=== PATIENT | male | born 1965 | race Caucasian/White ===

== ENCOUNTER → 2017-12-19 10:13 | Outpatient (CLI) | payer BC, SELFPAY ==
[2017-12-19 12:12] LABS: Absolute Lymphocyte Count 1.81 X10^3/ul (0.83-4.51); Absolute Neutrophil Count 1.4 X10^3/uL (2.0-7.7); Basophil# 0.02 X10^3/uL; Basophil% 0.5 % (0-1); Eosinophil# 0.19 X10^3/uL; Hematocrit 44.3 % (40-54); Hemoglobin 15.2 g/dl (13.0-16.5); Lymphocyte # 1.81 X10^3/ul (4.0); Lymphocyte % 47.8 % (19-41); Mean Corp Hgb Conc 34.3 g/gl (32-36); Mean Corpuscular Hgb 32.1 pg (27.0-32.0); Mean Corpuscular Volume 93.7 fL (80-94); Mean Platelet Vol. 9.4 fl (6.2-12.0); Monocyte# 0.32 X10^3/uL; Monocyte% 8.4 % (0-10); Neutrophil # 1.44 X10^3/uL (2.7-7.7); Platelet Count 187 K/mm3 (150-450); RBC Distribution Width CV 12.4 % (11.6-14.6); RBC Distribution Width SD 42.1 fl (35.1-43.9); Red Blood Count 4.73 M/mm3 (4.6-6.2); White Blood Count 3.8 K/mm3 (4.4-11.0)
[2017-12-19 12:20] LABS: POSITIVE COUNT NO; POSITIVE DIFFERENTIAL NO; POSITIVE MORPHOLOGY NO
[2017-12-19 12:30] LABS: Color, Urine Yellow (Yellow); Glucose, Dipstick Normal (Normal); Ketone-Dipstick Negative (Negative); Leukocyte Esterase-Dipstick Negative /ul (Negative); Nitrite-Dipstick Negative (Negative); Occult Blood-Urine Negative /ul (Negative); Protein-Dipstick Negative (Negative); Urine Bilirubin Dipstick Negative (Negative); Urine Clarity Clear (Clear); Urine Urobilinogen Normal (Normal)
[2017-12-19 12:34] LABS: ALB/GLOB Ratio 1.1 RATIO (0.9-2.4); AST(SGOT) 36 U/L (15-37); Alanine Aminotransfer ALT/SGPT 50 U/L (16-61); Albumin, Serum 3.6 g/dL (3.2-5.0); Alkaline Phosphatase 57 U/L (45-117); Anion Gap 6 (5-15); BUN 12 mg/dL (7-18); BUN/Creat Ratio 16.4 RATIO (10-20); Calcium,Total 8.4 mg/dL (8.5-10.1); Chloride 106 mmol/L (98-107); Cholesterol 134 mg/dL (200); Creatinine, Serum 0.73 mg/dL (0.70-1.30); EST Glomerular Filtration Rate 120 mL/min (>60); Est Glom Filt Rate - Afr Amer 145 mL/min (>60); Globulin 3.4 g/dL (2.2-4.2); Glucose 140 mg/dL (74-106); High Density Lipoprotein 50 mg/dL; Sodium Level 140 mmol/L (136-145); Triglycerides 76 mg/dL; Very Low Density Lipoprotein 15 mg/dL (5-40)
[2017-12-19 14:00] LABS: Chlamydia Trachomatis by PCR Negative (Negative); Neisserai gonorrhoeae by PCR Negative (Negative); Probe Check PASS; Sample Adequacy Control PASS; Specimen Processing Control PASS
[2017-12-20 14:07] LABS: Absolute CD4 Helper 665 /uL (359-1519); Basophils (Absolute) 0 x10E3/uL (0.0-0.2); Eosinophils 4 % (Not Estab.); Eosinophils (Absolute) 0.2 x10E3/uL (0.0-0.4); Hematocrit 44.4 % (37.5-51.0); Hemoglobin 15.3 g/dL (13.0-17.7); Immature Granulocytes 0 % (Not Estab.); Lymphs 47 % (Not Estab.); Lymphs (Absolute) 1.9 x10E3/uL (0.7-3.1); MCH 32.1 pg (26.6-33.0); MCHC 34.5 g/dL (31.5-35.7); MCV 93 fL (79-97); Monocytes 7 % (Not Estab.); Monocytes (Absolute) 0.3 x10E3/uL (0.1-0.9); Neutrophils 41 % (Not Estab.); Neutrophils (Absolute) 1.6 x10E3/uL (1.4-7.0); Platelets 204 x10E3/uL (150-379); RBC Count 4.77 x10E6/uL (4.14-5.80); RDW 12.8 % (12.3-15.4)
[2017-12-21 01:13] LABS: Rapid Plasmin Reagin (RPR) NONREACTIVE (NONREACTIVE)
[2017-12-21 11:52] LABS: HIV-1 RNA by PCR, Quant. < 20 copies/mL (.)
[2017-12-21 12:05] LABS: Immature Granulocytes Absolute 0 x10E3/uL (0.0-0.1)
== END ==
DX: B20 Human immunodeficiency virus [HIV] disease (principal)
CPT/HCPCS: 36415; 80053; 80061; 81002; 85025; 86361; 86592; 87491; 87536; 87591

== ENCOUNTER → 2018-06-04 11:02 | Outpatient (CLI) | payer BC, SELFPAY ==
[2018-06-04 12:38] LABS: AST(SGOT) 29 U/L (15-37); Alanine Aminotransfer ALT/SGPT 51 U/L (16-61); Albumin, Serum 3.7 g/dL (3.2-5.0); Alkaline Phosphatase 67 U/L (45-117); Anion Gap 7 (5-15); BUN 12 mg/dL (7-18); BUN/Creat Ratio 15.9 RATIO (10-20); Calcium,Total 8.8 mg/dL (8.5-10.1); Chloride 105 mmol/L (98-107); Creatinine, Serum 0.76 mg/dL (0.70-1.30); EST Glomerular Filtration Rate 115 mL/min (>60); Est Glom Filt Rate - Afr Amer 139 mL/min (>60); Globulin 3.8 g/dL (2.2-4.2); Glucose 115 mg/dL (74-106); Potassium 4.1 mmol/L (3.5-5.1); Protein, Total 7.5 g/dL (6.4-8.2); Sodium Level 139 mmol/L (136-145)
[2018-06-05 12:08] LABS: Absolute CD4 Helper 478 /uL (359-1519); Basophils (Absolute) 0 x10E3/uL (0.0-0.2); Eosinophils 3 % (Not Estab.); Eosinophils (Absolute) 0.1 x10E3/uL (0.0-0.4); Hematocrit 44.5 % (37.5-51.0); Hemoglobin 15.9 g/dL (13.0-17.7); Immature Granulocytes 0 % (Not Estab.); Lymphs 34 % (Not Estab.); Lymphs (Absolute) 1.2 x10E3/uL (0.7-3.1); MCH 32.8 pg (26.6-33.0); MCHC 35.7 g/dL (31.5-35.7); MCV 92 fL (79-97); Monocytes 13 % (Not Estab.); Monocytes (Absolute) 0.5 x10E3/uL (0.1-0.9); Neutrophils 49 % (Not Estab.); Neutrophils (Absolute) 1.8 x10E3/uL (1.4-7.0); Percent % CD4 Pos. Lymph. 39.8 % (30.8-58.5); Platelets 187 x10E3/uL (150-379); RBC Count 4.85 x10E6/uL (4.14-5.80); RDW 12.7 % (12.3-15.4); WBC Count 3.6 x10E3/uL (3.4-10.8)
[2018-06-06 12:45] LABS: Immature Granulocytes Absolute 0 x10E3/uL (0.0-0.1)
[2018-06-07 04:13] LABS: Rapid Plasmin Reagin (RPR) NONREACTIVE (NONREACTIVE)
== END ==
PROVIDERS: Family Provider Family Medicine; PCP Family Medicine
DX: B20 Human immunodeficiency virus [HIV] disease (principal)
CPT/HCPCS: 36415; 80053; 86361; 86592; 87536

== ENCOUNTER 2019-03-11 06:03 | Day surgery (SDC) | payer BC, SELFPAY ==
[2019-03-11] VITALS (8 sets, daily range): BP systolic 124–138; BP diastolic 71–117; PULSE 63–78; RESP 14–18; TEMP 36.3–36.4; O2SAT 98–100; BMI 23.6
--- NOTE | 2019-03-11 06:47 | PCM.HP.STD ---
Problem List (1) Screening for intestinal cancer Status: Acute History of Present Illness Date of Admission: 03/11/19 The patient is a 53 year old M who presents for screening colonoscopy. He denies bright red blood per rectum or melena. His general health has been stable.. He has never had a previous colonoscopy. Past Medical History Allergies Sulfa (Sulfonamide Antibiotics) Allergy (Verified 03/06/19 15:40) Hives Home Medications: Ambulatory Orders Medication Instructions Recorded Elviteg/Yasmeen/Emtric/Tenofo Ala 1 ea PO DAILY 03/06/19 [Genvoya Tablet] Insulin NPH Human Isophane 20 unit SQ BID 03/06/19 [Novolin N] Maraviroc [Selzentry] 150 mg PO BID 03/06/19 Multivitamin [Daily Multiple 1 ea PO DAILY 03/06/19 Vitamin] [place]-3 Fatty Acids/Fish Oil [Fish 1 ea PO DAILY 03/06/19 Oil 1,000 mg Capsule] Prasterone (Dhea) [Dhea] 25 mg PO DAILY 03/06/19 Ramipril [Altace] 2.5 mg PO DAILY 03/06/19 Smoking Status: Never smoker Tobacco Use: Non-smoker Review of Systems Constitutional: Denies: Anorexia HEENT: Denies: Difficulty Swallowing Cardiovascular: Denies: Chest Pain Respiratory: Denies: Cough Gastrointestinal: Denies: Abdominal Pain, Melena VTE Information - Inpt Only VTE Present on Admission: No - Physical Exam General: Alert, Oriented x3, Cooperative, No apparent distress Oral: Moist Mucosa Lungs: Clear to auscultation Cardiovascular: Regular rate, Regular Rhythm Abdomen: Soft, Non Tender, Non-Distended Vital Signs Temp Pulse Resp BP Pulse Ox 97.6 F L 66 14 137/71 H 98 03/11/19 06:33 03/11/19 06:33 03/11/19 06:33 03/11/19 06:33 03/11/19 06:33 Oxygen Delivery Method Room Air Weight: 155 lb 6.814 oz Body Mass Index (BMI) 23.6 Assessment/Plan All Active Problems Screening for intestinal cancer (Acute) 53-year-old gentleman presents for screening colonoscopy. He is aware of the technique, benefits, risks, alternatives. He has had an opportunity to ask and have questions answered. We will proceed as noted. He presents via open access today. Amadeo Prieto M.D., F.A.C.S.
[2019-03-11 06:51] LABS: Bedside Glucose 74 mg/dL (70-110)
--- NOTE | 2019-03-11 07:19 | OP.ENDO_ITS ---
03/11/2019 Chino Medina [address] [place] [address] Re : Colonoscopy procedure for Diallo Medina Dear Dr. Medina This procedure was performed on Monday, March 11, 2019. My impressions and recommendations are as follows: Impressions : - Non-thrombosed external hemorrhoids, non-thrombosed internal hemorrhoids and internal hemorrhoids that prolapse with straining, but spontaneously regress to the resting position (Grade II) found on digital rectal exam. - The entire examined colon is normal. - No specimens collected. Recommendations : - Discharge patient to home. - Resume previous diet. - Continue present medications. - Repeat colonoscopy in 10 years for screening purposes. My findings are described in the full procedure note, which is enclosed. If I can be of further assistance, please feel free to contact me at Doctor phone number(s): Work: . Sincerely, Amadeo Prieto MD 03/11/2019 7:18:50 AM This report has been signed electronically.
== END 2019-03-11 08:01 | disposition home or self-care (01) ==
LOC: EN 06:03 → AC 06:05
PROVIDERS: Family Provider Family Medicine; PCP Family Medicine; Referring Provider Family Medicine; Visit Provider Surgery
PROC: 0DJD8ZZ Inspection of Lower Intestinal Tract, Via Natural or Artificial Opening Endoscopic (ICD-10-PCS; CPT 45378; principal; 2019-03-11 06:55)
DX: Z12.11 Encounter for screening for malignant neoplasm of colon (principal); K64.1 Second degree hemorrhoids; K64.4 Residual hemorrhoidal skin tags; Z79.4 Long term (current) use of insulin
CPT/HCPCS: 45378; 82962; 99152; 99153; J7120

== ENCOUNTER → 2019-03-31 | Outpatient (CLI) | payer BC, SELFPAY ==
[2019-03-11 06:33] VITALS: BMI 23.6
[2019-03-31 12:11] LABS: Color, Urine Yellow (Yellow); Glucose, Dipstick 50 mg/dl (Normal); Ketone-Dipstick Negative (Negative); Leukocyte Esterase-Dipstick Negative /ul (Negative); Nitrite-Dipstick Negative (Negative); Occult Blood-Urine Negative /ul (Negative); Protein-Dipstick 15 mg/dl (Negative); Specific Gravity, Urine 1.005 (1.002-1.030); Urine Bilirubin Dipstick Negative (Negative); Urine Clarity Sl. Cloudy (Clear); Urine Urobilinogen Normal (Normal)
[2019-03-31 12:20] LABS: Absolute Lymphocyte Count 1.67 X10^3/uL (0.83-4.51); Absolute Neutrophil Count 2.4 X10^3/uL (2.0-7.7); Basophil# 0.04 X10^3/uL; Basophil% 0.8 % (0-1); Eosinophil# 0.19 X10^3/uL; Hematocrit 46.4 % (40-54); Hemoglobin 15.6 g/dL (13.0-16.5); Lymphocyte # 1.67 X10^3/ul (4.0); Lymphocyte % 35.2 % (19-41); Mean Corp Hgb Conc 33.6 g/dL (32-36); Mean Corpuscular Hgb 32.9 pg (27.0-32.0); Mean Corpuscular Volume 97.9 fL (80-94); Mean Platelet Vol. 9.2 fl (6.2-12.0); Monocyte# 0.39 X10^3/uL; Monocyte% 8.2 % (0-10); NRBC Flagged by Analyzer 0 % (0-5); Neutrophil # 2.44 X10^3/uL (2.7-7.7); Neutrophil % 51.6 % (47-70); Platelet Count 203 K/mm3 (150-450); RBC Distribution Width CV 11.8 % (11.6-14.6); RBC Distribution Width SD 42.7 fl (35.1-43.9); Red Blood Count 4.74 M/mm3 (4.6-6.2); White Blood Count 4.7 K/mm3 (4.4-11.0)
[2019-03-31 12:36] LABS: Hemoglobin A1c 7.5 % (4.2-6.3)
[2019-03-31 12:45] LABS: Microalbumin,Random Urine < 5.0 mg/L (NO RANGE EST.)
[2019-03-31 12:52] LABS: AST(SGOT) 18 U/L (15-37); Alanine Aminotransfer ALT/SGPT 36 U/L (16-61); Albumin, Serum 3.6 g/dL (3.2-5.0); Alkaline Phosphatase 63 U/L (45-117); Anion Gap 6 (5-15); BUN 14 mg/dL (7-18); BUN/Creat Ratio 16.7 RATIO (10-20); Calcium,Total 8.7 mg/dL (8.5-10.1); Chloride 106 mmol/L (98-107); Cholesterol 142 mg/dL (200); Creatinine, Serum 0.84 mg/dL (0.70-1.30); EST Glomerular Filtration Rate 102 mL/min (>60); Est Glom Filt Rate - Afr Amer 124 mL/min (>60); Globulin 3.6 g/dL (2.2-4.2); Glucose 155 mg/dL (74-106); High Density Lipoprotein 51 mg/dL; Potassium 4.2 mmol/L (3.5-5.1); Protein, Total 7.2 g/dL (6.4-8.2); Sodium Level 140 mmol/L (136-145); Thyroid Stim Hormone (TSH) 2.04 uIU/mL (0.358-3.74); Triglycerides 63 mg/dL; Very Low Density Lipoprotein 13 mg/dL (5-40)
[2019-04-01 16:07] LABS: Absolute CD4 Helper 598 /uL (359-1519); Basophils (Absolute) 0 x10E3/uL (0.0-0.2); CD4/CD8 Ratio 1.42 (0.92-3.72); Eosinophils 3 % (Not Estab.); Eosinophils (Absolute) 0.2 x10E3/uL (0.0-0.4); Hematocrit 45.3 % (37.5-51.0); Hemoglobin 15.7 g/dL (13.0-17.7); Immature Granulocytes 0 % (Not Estab.); Lymphs 36 % (Not Estab.); Lymphs (Absolute) 1.7 x10E3/uL (0.7-3.1); MCH 33.3 pg (26.6-33.0); MCHC 34.7 g/dL (31.5-35.7); MCV 96 fL (79-97); Monocytes 8 % (Not Estab.); Monocytes (Absolute) 0.4 x10E3/uL (0.1-0.9); Neutrophils 52 % (Not Estab.); Neutrophils (Absolute) 2.5 x10E3/uL (1.4-7.0); Percent % CD4 Pos. Lymph. 35.2 % (30.8-58.5); Percent % CD8 Pos. Lymph. 24.8 % (12.0-35.5); Platelets 227 x10E3/uL (150-450); RBC Count 4.72 x10E6/uL (4.14-5.80); RDW 12.8 % (12.3-15.4); WBC Count 4.7 x10E3/uL (3.4-10.8)
[2019-04-02 11:26] LABS: Immature Granulocytes Absolute 0 x10E3/uL (0.0-0.1)
[2019-04-03 14:16] LABS: HIV-1 RNA by PCR, Quant. < 20 copies/mL (.)
== END | disposition home or self-care (01) ==
LOC: MTLAB 10:07
PROVIDERS: Family Provider Family Medicine; PCP Family Medicine
DX: B20 Human immunodeficiency virus [HIV] disease (principal); E11.9 Type 2 diabetes mellitus without complications; Z79.4 Long term (current) use of insulin; I10 Essential (primary) hypertension
CPT/HCPCS: 36415; 80053; 80061; 81002; 82043; 82570; 83036; 84443; 85025; 86360; 87536

== ENCOUNTER 2019-09-17 14:50 | Emergency (ER) | payer OTHER, BC, SELFPAY ==
[2019-03-11 06:33] VITALS: BMI 23.6
[2019-09-17 14:50] VITALS: BP 140/95; PULSE 83; RESP 16; TEMP 36.9; O2SAT 99; BMI 23.7
[2019-09-17 15:10] VITALS: RESP 18
--- NOTE | 2019-09-17 15:25 | CT_ITS ---
STUDY: CT BRAIN WITHOUT CONTRAST REASON FOR EXAM: Male, 53 years old. FELL DOWN 14 STEPS ONTO CONCRETE, PAIN TO RT SIDE OF HEAD RADIATION DOSAGE (If Supplied By Facility): CTDIvol = ( 44.99 ) mGy, DLP = ( 745.49 ) mGycm TECHNIQUE: Transaxial CT imaging of the brain was performed without administration of intravenous contrast material. Individualized dose optimization techniques were used for this CT. COMPARISON: No relevant priors. FINDINGS: Normal soft tissue structures. Normal calvarium. There is mild cerebral atrophy with widening of the extra-axial spaces and ventricular dilatation. Normal white matter tracts of the cerebral hemispheres. Normal basal ganglia and thalami. Normal brainstem. Normal cerebellum. There is no intracranial hemorrhage. There are no findings of an acute ischemic infarction. Normal visualized paranasal sinuses. CT/Brain/Head without Contrast IMPRESSION: Chronic involutional changes of the brain. Electronically Signed: Favian Seaman, at 15:51 EST , Service support ,
--- NOTE | 2019-09-17 16:16 | ED.DCSUM_ITS ---
- ER Visit Summary Date of Service: 09/17/19 Chief Complaint: Fall History of Present Illness: The patient is a 53 M who presents with a fall that occurred today. Patient fell down approximately 13 steps. Patient states he was carrying something heavy and thinks he missed a step. Patient hit the back of his head. Patient denies any loss of consciousness. Patient denies any paresthesias or weakness. Patient denies any visual changes. Patient denies any nausea or vomiting. Patient denies any chest pain or shortness of breath. Physical Examination: Vital signs are stable. Patient is afebrile. Patient is in no acute distress. Cranial nerves II through XII are intact. There are no focal motor or sensory deficits noted. Pupils are equal, round, and reactive to light bilaterally. Extraocular muscles are intact. Oral mucosa is pink and moist. Neck is supple. Trachea is midline. There is no JVD. There is some mild left trapezius muscle tenderness. There is no bony crepitance or step-off. There is good range of motion of the upper and lower extremities. Heart was regular rate and rhythm. Lungs are clear and equal bilaterally. Abdomen is soft and nontender. There is some mild tenderness over the thoracic and lumbar spine and paraspinal muscles. There is good range of motion. There is no bony crepitance or step-off. Test Results: CT scan of the brain was obtained. There is no acute intracranial abnormality. This was interpreted by the radiologist and reviewed by myself. Emergency Department Course and Treatment: Patient was given ice pack. Patient was instructed to continue using ice. Patient was instructed to take Tylenol or ibuprofen as needed for the pain. Patient was instructed to follow-up with his primary care physician in 5 to 7 days. Patient understood and was agreeable with the plan. All questions were answered. Disposition: Discharged home Impression: 1. Closed head injury This note was generated with [employer] dictation software. It may contain incorrect words, spelling, and punctuation that were not noted in review of the chart prior to signing ED Disposition - Plan for ED Patient: Disposition: Home or Assisted Living Diagnosis: Closed head injury with concussion Instructions: HEAD INJURY, No Wake-Up (Adult) Referrals: Chino Medina MD [Primary Care Provider] - 3-5 Days
[2019-09-17 17:03] VITALS: BP 145/87
== END 2019-09-17 17:04 | disposition home or self-care (01) ==
PROVIDERS: Emergency Provider Emergency Medicine; PCP Family Medicine
DX: S06.0X0A Concussion without loss of consciousness, initial encounter (principal); W10.9XXA Fall (on) (from) unspecified stairs and steps, initial encounter; Y93.9 Activity, unspecified; Y92.9 Unspecified place or not applicable; Y99.9 Unspecified external cause status; E10.8 Type 1 diabetes mellitus with unspecified complications; Z21 Asymptomatic human immunodeficiency virus [HIV] infection status; Z79.4 Long term (current) use of insulin; Z79.899 Other long term (current) drug therapy
CPT/HCPCS: 70450; 99283

== ENCOUNTER → 2019-12-23 08:08 | Outpatient (CLI) | payer BC, SELFPAY ==
[2019-09-23 13:34] VITALS: BMI 23.7
[2019-12-23 10:22] LABS: ALB/GLOB Ratio 1.1 RATIO (0.9-2.4); AST(SGOT) 24 U/L (15-37); Alanine Aminotransfer ALT/SGPT 34 U/L (16-61); Albumin, Serum 3.8 g/dL (3.2-5.0); Alkaline Phosphatase 57 U/L (45-117); Anion Gap 5 (5-15); BUN 12 mg/dL (7-18); BUN/Creat Ratio 15.8 RATIO (10-20); Chloride 104 mmol/L (98-107); Creatinine, Serum 0.76 mg/dL (0.70-1.30); EST Glomerular Filtration Rate 114 mL/min (>60); Est Glom Filt Rate - Afr Amer 138 mL/min (>60); Globulin 3.4 g/dL (2.2-4.2); Glucose 136 mg/dL (74-106); Protein, Total 7.2 g/dL (6.4-8.2); Sodium Level 139 mmol/L (136-145)
[2019-12-24 12:07] LABS: Absolute CD4 Helper 675 /uL (359-1519); Basophils (Absolute) 0 x10E3/uL (0.0-0.2); Eosinophils 3 % (Not Estab.); Eosinophils (Absolute) 0.1 x10E3/uL (0.0-0.4); Hematocrit 43.9 % (37.5-51.0); Hemoglobin 14.9 g/dL (13.0-17.7); Immature Granulocytes 0 % (Not Estab.); Lymphs 44 % (Not Estab.); Lymphs (Absolute) 1.8 x10E3/uL (0.7-3.1); MCH 32.3 pg (26.6-33.0); MCHC 33.9 g/dL (31.5-35.7); MCV 95 fL (79-97); Monocytes 9 % (Not Estab.); Monocytes (Absolute) 0.4 x10E3/uL (0.1-0.9); Neutrophils 43 % (Not Estab.); Neutrophils (Absolute) 1.8 x10E3/uL (1.4-7.0); Percent % CD4 Pos. Lymph. 37.5 % (30.8-58.5); Platelets 239 x10E3/uL (150-450); RBC Count 4.62 x10E6/uL (4.14-5.80); RDW 12.2 % (11.6-15.4); WBC Count 4.1 x10E3/uL (3.4-10.8)
[2019-12-24 16:01] LABS: Immature Granulocytes Absolute 0 x10E3/uL (0.0-0.1)
[2020-01-01 05:03] LABS: HIV-1 RNA by PCR, Quant. < 20 copies/mL (.)
== END ==
PROVIDERS: PCP Family Medicine
DX: B20 Human immunodeficiency virus [HIV] disease (principal)
CPT/HCPCS: 36415; 80053; 86360; 87536

== ENCOUNTER → 2020-03-09 11:58 | Outpatient (CLI) | payer BC, SELFPAY ==
[2019-09-23 13:34] VITALS: BMI 23.7
[2020-03-09 16:16] LABS: Hemoglobin A1c 8.5 % (3.8-5.6)
[2020-03-09 16:39] LABS: ALB/GLOB Ratio 1.1 RATIO (0.9-2.4); AST(SGOT) 20 U/L (15-37); Alanine Aminotransfer ALT/SGPT 40 U/L (16-61); Albumin, Serum 3.4 g/dL (3.2-5.0); Alkaline Phosphatase 50 U/L (45-117); Anion Gap 7 (5-15); BUN 11 mg/dL (7-18); BUN/Creat Ratio 14.9 RATIO (10-20); Calcium,Total 8.1 mg/dL (8.5-10.1); Chloride 99 mmol/L (98-107); Creatinine, Serum 0.74 mg/dL (0.70-1.30); EST Glomerular Filtration Rate 117 mL/min (>60); Est Glom Filt Rate - Afr Amer 142 mL/min (>60); Globulin 3.2 g/dL (2.2-4.2); Glucose 353 mg/dL (74-106); Lipase 111 U/L (73-393); Potassium 4.2 mmol/L (3.5-5.1); Protein, Total 6.6 g/dL (6.4-8.2); Sodium Level 132 mmol/L (136-145); Thyroid Stim Hormone (TSH) 1.75 uIU/mL (0.358-3.74)
[2020-03-09 16:44] LABS: Creatinine, Urine (random) < 13.00 mg/dL (NO RANGE EST.); Microalbumin,Random Urine < 5.0 mg/L (NO RANGE EST.)
== END ==
PROVIDERS: PCP Family Medicine; Referring Provider Family Medicine; Visit Provider Family Medicine
DX: E10.9 Type 1 diabetes mellitus without complications (principal); I10 Essential (primary) hypertension
CPT/HCPCS: 36415; 80053; 82043; 82570; 83036; 83690; 84443

== ENCOUNTER → 2020-08-16 14:52 | Outpatient (CLI) | payer BC, SELFPAY ==
[2019-09-23 13:34] VITALS: BMI 23.7
--- NOTE | 2020-08-16 14:55 | RAD_ITS ---
STUDY: X-RAY - RIGHT FOOT CLINICAL: Male, 54 years old. pain right distal 4th mt -- fell 2 days ago TECHNIQUE: 3 view(s) of the foot. COMPARISON: None. FINDINGS: Normal talus, calcaneus, and tarsal bones. Normal visualized subtalar, talonavicular, calcaneocuboid, tarsal and tarsometatarsal articulations. Normal metatarsi. Normal metatarsophalangeal joint of the great toe. Normal tibial and fibular sesamoid bones. Normal interphalangeal joint of the great toe. Normal phalanges of the great toe. Normal second through fifth metatarsophalangeal joints. Normal interphalangeal joints and phalanges of the lesser toes. The soft tissue structures are unremarkable. RAD/Foot min 3 Views IMPRESSION: Normal x-ray examination of the foot. Electronically Signed: Billy Valero MD at 16:21 EST Tel , Service support ,
== END ==
PROVIDERS: PCP Family Medicine; Referring Provider Family Medicine; Visit Provider Family Medicine
DX: M79.671 Pain in right foot (principal)
CPT/HCPCS: 73630

== ENCOUNTER → 2020-08-24 11:39 | Outpatient (CLI) | payer BC, SELFPAY ==
[2019-09-23 13:34] VITALS: BMI 23.7
[2020-08-24 15:51] LABS: Absolute Lymphocyte Count 1.86 X10^3/uL (0.83-4.51); Absolute Neutrophil Count 2.3 X10^3/uL (2.0-7.7); Basophil# 0.03 X10^3/uL; Basophil% 0.6 % (0-1); Eosinophil# 0.18 X10^3/uL; Eosinophils% 3.9 % (0-5); Hemoglobin 14.6 g/dL (13.0-16.5); Lymphocyte # 1.86 X10^3/ul (4.0); Mean Corp Hgb Conc 33.2 g/dL (32-36); Mean Corpuscular Hgb 31.7 pg (27.0-32.0); Mean Corpuscular Volume 95.7 fL (80-94); Mean Platelet Vol. 9.7 fl (6.2-12.0); Monocyte# 0.31 X10^3/uL; Monocyte% 6.7 % (0-10); NRBC Flagged by Analyzer 0 % (0-5); Neutrophil # 2.25 X10^3/uL (2.7-7.7); Neutrophil % 48.4 % (47-70); Platelet Count 233 K/mm3 (150-450); RBC Distribution Width CV 11.8 % (11.6-14.6); RBC Distribution Width SD 41.4 fl (35.1-43.9); White Blood Count 4.7 K/mm3 (4.4-11.0)
[2020-08-24 16:40] LABS: Hemoglobin A1c 7.7 % (3.8-5.6)
[2020-08-24 16:41] LABS: AST(SGOT) 23 U/L (15-37); Alanine Aminotransfer ALT/SGPT 42 U/L (16-61); Albumin, Serum 3.7 g/dL (3.2-5.0); Alkaline Phosphatase 66 U/L (45-117); Anion Gap 4 (5-15); BUN 13 mg/dL (7-18); BUN/Creat Ratio 15.2 RATIO (10-20); Calcium,Total 8.8 mg/dL (8.5-10.1); Chloride 102 mmol/L (98-107); Creatinine, Serum 0.85 mg/dL (0.70-1.30); EST Glomerular Filtration Rate 99 mL/min (>60); Est Glom Filt Rate - Afr Amer 120 mL/min (>60); Globulin 3.7 g/dL (2.2-4.2); Glucose 266 mg/dL (74-106); Potassium 4.2 mmol/L (3.5-5.1); Protein, Total 7.4 g/dL (6.4-8.2); Sodium Level 136 mmol/L (136-145); Thyroid Stim Hormone (TSH) 1.83 uIU/mL (0.358-3.74)
== END ==
PROVIDERS: PCP Family Medicine; Referring Provider Family Medicine; Visit Provider Family Medicine
DX: Z21 Asymptomatic human immunodeficiency virus [HIV] infection status (principal); M85.80 Other specified disorders of bone density and structure, unspecified site; E13.9 Other specified diabetes mellitus without complications
CPT/HCPCS: 36415; 80053; 82306; 83036; 84443; 85025

== ENCOUNTER 2020-08-24 12:56 | Outpatient (RCR) | payer BC, SELFPAY ==
[2019-09-23 13:34] VITALS: BMI 23.7
--- NOTE | 2020-08-24 13:48 | HP.PTEVAL ---
Patient's Visit Information JOSSE MEDINA is a 54 year old M referred to Physical Therapy by Dr. Chino Medina MD with a diagnosis of frequent falls. Date of Evaluation: 08/24/20 Physical Therapist: Chino Cordero, DPT, OCS, CSCS - Visit Plan Frequency: 2x /Week Duration: 4 Weeks Plan: Neurocom test per order adn then 2x/week for 4 weeks if appropriate for quad strengtha dn balance ex per results. - Subjective Having frequent falls. I am diabetic adn has had issues with long flights of steps. Stepping down onto R leg and it gives out sometimes. R foot pain took him to Dr. Medina. X ray was negative. Not catching toes, just leg gives out if not a flat surface. No spinning. No diagnosed neuroapthy, will see endocriniloigst. Had filament test adn did well. Has some R foot pain top from falling. 0-5/10, comfy at rest. No AD needed. Sleep is OK now. 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 Slower than usual. Hobbies: reading and swimming and gardening. Not as active as I used to be. Hard to get off ground. Execises: walking at park most days for an hour. - Pain R foot Pain Intensity (Out of 10): 0 Pain Intensity Range: 0, 5 - Objective Walks normal with slight steppage and hesitancy but functional and I. steps are weak nearly requiring railing to pull up. Descending steps lacks eccentric control and requires railing. Unable to exit chair without UE, can get off higher surface but definitely feels weak. UE AROM WNL. reflexes patella adn achilles 0/3, Sensation UE adn LE WNL to gross light touch. L biceps adn triceps slightly weak compared to R. LE coordination to reciprocal toe tapping is normal. Strength in ankles 4/5 B all directions and able to heel raise easily B. Hip strength flexion and abd sitting 4/5. HS strength 52# B, quad strength 10# B, VERY WEAK IN BOTH QUADS AND UNABLE TO RESIST MY MANUAL RESISTANCE. VERY UNUSUAL FOR THIS AMOUNT OF WEAKNESS IN BOTH QUADS AND NO DOUBT IS WHAT IS MAKING HIM FALL. DOCTOR OFFICE NOTIFIED VIA PHONE TODAY. Balance appears good today. - Balance Scores Functional Gait Assessment Score: 29 % Disability: 3.3400 - Goals Goal 1:: Neurocom test per order and review results with patient Goal Time Frame: 2-4 Weeks Goal 2:: FGA if able to limit falls. Goal Time Frame: 2-4 Weeks - Rehabilitation Potential Physical Therapy Diagnosis: frequent falls due to quad weakness of unknown origin. Rehabilitation Potential: Questionable - Anticipated Interventions Patient/Client Instruction: Educate patient on: Condition, Plan of Care For the Purpose of:: To improve muscle performance and motor function, To improve safety with gait Therapeutic Exercise to Include: Strength training, Balance training For the Purpose of:: To increase tolerance to activity/condition/position, To improve gait and locomotor functions Thank you for the opportunity to evaluate your patient. For Medicare and Medicare HMO plans, please review the plan of care and approve it. It will need to be FAXED BACK to us at [phone] for Medicare purposes. For Medicare only, by signing this I certify the plan of care. Please let me know if there are questions or concerns regarding this plan of care. Physician Signature: Date:
== END 2020-08-24 19:00 | disposition home or self-care (01) ==
LOC: PT 12:56
PROVIDERS: PCP Family Medicine; Referring Provider Family Medicine; Visit Provider Family Medicine
DX: M62.81 Muscle weakness (generalized) (principal); R29.6 Repeated falls
CPT/HCPCS: 97162

== ENCOUNTER → 2020-08-26 13:48 | Outpatient (CLI) | payer BC, SELFPAY ==
[2019-09-23 13:34] VITALS: BMI 23.7
--- NOTE | 2020-08-26 13:55 | CT_ITS ---
STUDY: CT LUMBAR SPINE WITHOUT CONTRAST REASON FOR EXAM: Male, 54 years old. QUADRICEP WEAKNESS X2 YEARS--WORSE ON RIGHT -- FALLS FROM WEAKNESS RADIATION DOSAGE (If Supplied By Facility): CTDIvol = ( 30 ) mGy, DLP = ( 1094.62 ) mGycm TECHNIQUE: The patient was scanned in a multi detector CT scanner. High resolution transaxial imaging was performed. Images were obtained from L1 to S1 vertebral level. Sagittal and coronal images were reconstructed. Individualized dose optimization techniques were used for this CT. COMPARISON: None FINDINGS: There is straightening of the normal lumbar lordosis. There is no substantial scoliosis. Normal vertebrae of the lumbar spine. L1-2: Normal endplates. Normal disc height and morphology. Normal bilateral facet joints. Normal central canal and bilateral lateral recesses. Normal bilateral intervertebral neural foramina. L2-3: Normal endplates. Normal disc height and morphology. Normal bilateral facet joints. Normal central canal and bilateral lateral recesses. Normal bilateral intervertebral neural foramina. L3-4: Normal endplates. Normal disc height and morphology. Normal bilateral facet joints. Normal central canal and bilateral lateral recesses. Normal bilateral intervertebral neural foramina. L4-5: Normal endplates. Minimal diffuse posterior disc bulge causing minimal deformity of the thecal sac. Normal bilateral facet joints. Normal central canal and bilateral lateral recesses. Normal bilateral intervertebral neural foramina. L5-S1: Normal endplates. Normal disc height and morphology. Normal bilateral facet joints. Normal central canal and bilateral lateral recesses. Normal bilateral intervertebral neural foramina. Atherosclerotic plaque calcification of the infrarenal abdominal aorta. CT/Spine Lumbar without Contrast IMPRESSION: Minimal posterior diffuse disc bulge at the L4-L5 level causing minimal deformity of the thecal sac. Electronically Signed: Favian Seaman, at 14:29 EST , Service support ,
== END ==
PROVIDERS: PCP Family Medicine; Referring Provider Family Medicine; Visit Provider Family Medicine
DX: M62.81 Muscle weakness (generalized) (principal)
CPT/HCPCS: 72131

== ENCOUNTER → 2020-09-21 14:28 | Outpatient (CLI) | payer BC, SELFPAY ==
[2020-09-21 13:23] VITALS: BMI 25.7
[2020-09-21 15:10] LABS: Erythrocyte Sedimentation Rate 13 mm/hr (0-20)
[2020-09-21 15:42] LABS: Vitamin B12 453 pg/mL (211-911)
[2020-09-21 15:58] LABS: CPK Total, Creatine Kinase 302 U/L (39-308); CRP < 2.90 mg/L (0.0-3.0)
[2020-09-23 15:35] LABS: ANTINUCLEAR ANTIBODIES DIRECT Negative (Negative)
[2020-09-23 16:09] LABS: Free Kappa Light Chains 26.2 mg/L (3.3-19.4); Free Lambda Light Chains 14.4 mg/L (5.7-26.3)
[2020-09-28 14:09] LABS: Aldolase 7.1 U/L (3.3-10.3); Vitamin B1, Thiamine 121.5 nmol/L (66.5-200.0)
[2020-09-28 14:39] LABS: ACHR Recep AB, Blocking 17 % (0-25); Myoglobin, Serum 98 ng/mL (28-72)
== END ==
PROVIDERS: Nurse Practitioner Family; PCP Family Medicine; Referring Provider Psychiatry & Neurology Neurology; Visit Provider Psychiatry & Neurology Neurology
DX: G62.89 Other specified polyneuropathies (principal); G72.9 Myopathy, unspecified
CPT/HCPCS: 36415; 82085; 82550; 82607; 82746; 83519; 83874; 83883; 84425; 85652; 86038; 86140; 86225; 86235

== ENCOUNTER → 2020-10-21 14:01 | Outpatient (CLI) | payer BC, SELFPAY ==
[2020-09-21 13:23] VITALS: BMI 25.7
[2020-10-21 15:55] LABS: Rheumatoid Factor < 10.0 IU/mL (<15)
== END ==
PROVIDERS: PCP Family Medicine; Visit Provider Psychiatry & Neurology Neurology
DX: G72.9 Myopathy, unspecified (principal); R53.1 Weakness
CPT/HCPCS: 36415; 86431

== ENCOUNTER → 2020-11-08 12:51 | Outpatient (CLI) | payer BC, SELFPAY ==
[2020-09-21 13:23] VITALS: BMI 25.7
--- NOTE | 2020-11-08 15:16 | NEURO_ITS ---
NCS and/or EMG Patient Report Ordering Doctor: Nicholas Junior DATE OF SERVICE: 11/08/20 Indication: Progressive, generalized weakness over the last couple of years. Symptoms are most pronounced in the proximal lower extremities, though the arms are affected to a lesser extent. No significant disturbance of sensation. Evaluate for myopathy Findings: Nerve conduction studies were performed in the left upper and bilateral lower extremities. The left median motor study recording the abductor pollicis brevis showed a normal amplitude, normal distal latency and normal conduction velocity. The left ulnar motor study recording the abductor digiti minimi showed a normal amplitude, normal distal latency and normal conduction velocity. No conduction block or focal slowing was present across the elbow. The left median sensory response recording digit two showed a normal amplitude, latency and conduction velocity. The left ulnar sensory response recording digit five showed a normal amplitude, borderline latency and borderline conduction velocity. The left radial sensory response recording over the extensor snuff box showed a normal amplitude, latency and conduction velocity. The left peroneal motor study recording the extensor digitorum brevis showed a normal amplitude, normal distal latency and borderline conduction velocity. No conduction block or focal slowing was present across the fibular neck. The left tibial motor study recording the abductor hallucis brevis showed a reduced amplitude, normal distal latency and borderline conduction velocity. Left sural sensory response showed a mildly reduced amplitude and slowed conduction velocity. Left superficial peroneal sensory response was absent. The right peroneal motor study recording the extensor digitorum brevis showed a normal amplitude, normal distal latency and borderline conduction velocity. No conduction block or focal slowing was present across the fibular neck. The right tibial motor study recording the abductor hallucis brevis showed a reduced amplitude, normal distal latency and slowed conduction velocity. Right sural sensory response showed a mildly reduced amplitude and slowed conduction velocity. Right superficial peroneal sensory response was absent. Needle EMG of the left upper and lower extremity muscles was performed. Active denervation was present in proximal muscles. A brief myotonic discharge was seen in the triceps. In the deltoid, triceps and biceps muscles motor units were a mixture of large amplitude and small amplitude with significant polyphasia. The vastus medialis and vastus lateralis revealed motor units which were short duration, small amplitude and markedly polyphasic with early recruitment. Impression: This is a markedly abnormal study. 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 If muscle biopsy is pursued, the RIGHT deltoid or vastus lateralis would be appropriate sites. In addition, there is evidence of a superimposed, mild, axonal, length- dependent, sensorimotor peripheral polyneuropathy. Ian Rizo D.O.
== END ==
PROVIDERS: PCP Family Medicine; Referring Provider Psychiatry & Neurology Neurology; Visit Provider Psychiatry & Neurology Neurology
DX: G62.89 Other specified polyneuropathies (principal); G72.9 Myopathy, unspecified
CPT/HCPCS: 95885; 95913

== ENCOUNTER → 2020-11-29 14:07 | Outpatient (CLI) | payer BC, SELFPAY ==
[2020-09-21 13:23] VITALS: BMI 25.7
[2020-12-02 14:09] LABS: Albumin 3.7 g/dL (2.9-4.4); Alpha-1-Globulins 0.2 g/dL (0.0-0.4); Alpha-2-Globulins 0.8 g/dL (0.4-1.0); Gamma Globulin 1.1 g/dL (0.4-1.8); Immunoglobulin A 221 mg/dL (90-386); Immunoglobulin G 1011 mg/dL (603-1613); Immunoglobulin M 88 mg/dL (20-172); PROEL- TOTAL PROTEIN 6.7 g/dL (6.0-8.5)
[2020-12-02 17:03] LABS: IMMUNOFIXATION RESULT,S Comment: (.); Immunofixation Urine Comment: (.)
== END ==
PROVIDERS: PCP Family Medicine; Referring Provider Psychiatry & Neurology Neurology; Visit Provider Psychiatry & Neurology Neurology
DX: G62.9 Polyneuropathy, unspecified (principal)
CPT/HCPCS: 36415; 82784; 84165; 86334; 86335

== ENCOUNTER → 2023-05-23 | Outpatient (CLI) | payer OTHER, SELFPAY ==
[2023-05-23 11:02] LABS: Hemoglobin A1c 6.7 % (3.8-5.6)
[2023-05-23 11:13] LABS: ALB/GLOB Ratio 0.9 RATIO (0.9-2.4); AST(SGOT) 41 U/L (15-37); Alanine Aminotransfer ALT/SGPT 57 U/L (16-61); Albumin, Serum 3.4 g/dL (3.2-5.0); Alkaline Phosphatase 67 U/L (45-117); Anion Gap 4 (5-15); BUN 12 mg/dL (7-18); BUN/Creat Ratio 16.1 RATIO (10-20); Calcium,Total 8.8 mg/dL (8.5-10.1); Chloride 106 mmol/L (98-107); Cholesterol 109 mg/dL (200); Creatinine, Serum 0.75 mg/dL (0.70-1.30); EST Glomerular Filtration Rate 114 mL/min (>60); Est Glom Filt Rate - Afr Amer 139 mL/min (>60); Globulin 3.8 g/dL (2.2-4.2); Glucose 128 mg/dL (74-106); High Density Lipoprotein 52 mg/dL; Potassium 4.3 mmol/L (3.5-5.1); Protein, Total 7.2 g/dL (6.4-8.2); Sodium Level 138 mmol/L (136-145); Thyroid Stim Hormone (TSH) 2.05 uIU/mL (0.358-3.74); Triglycerides 104 mg/dL; Very Low Density Lipoprotein 21 mg/dL (5-40)
== END | disposition home or self-care (01) ==
PROVIDERS: PCP Family Medicine; Referring Provider Internal Medicine Endocrinology, Diabetes & Metabolism; Visit Provider Internal Medicine Endocrinology, Diabetes & Metabolism
DX: E10.9 Type 1 diabetes mellitus without complications (principal); E78.2 Mixed hyperlipidemia; E04.9 Nontoxic goiter, unspecified
CPT/HCPCS: 36415; 80053; 80061; 83036; 84443

== ENCOUNTER → 2023-06-20 | Outpatient (CLI) | payer OTHER, SELFPAY ==
[2023-06-20 12:21] LABS: Absolute Lymphocyte Count 2.04 X10^3/uL (0.83-4.51); Absolute Neutrophil Count 2.5 X10^3/uL (2.0-7.7); Basophil# 0.04 X10^3/uL; Basophil% 0.8 % (0-1); Eosinophil# 0.19 X10^3/uL; Eosinophils% 3.7 % (0-5); Hematocrit 43.2 % (40-54); Hemoglobin 14.4 g/dL (13.0-16.5); Lymphocyte # 2.04 X10^3/ul (0.83-4.51); Lymphocyte % 39.2 % (19-41); Mean Corp Hgb Conc 33.3 g/dL (32-36); Mean Corpuscular Hgb 32.2 pg (27.0-32.0); Mean Corpuscular Volume 96.6 fL (80-94); Mean Platelet Vol. 9.2 fl (6.2-12.0); Monocyte# 0.42 X10^3/uL; Monocyte% 8.1 % (0-10); NRBC Flagged by Analyzer 0 % (0-5); Neutrophil # 2.49 X10^3/uL (2.7-7.7); Neutrophil % 47.8 % (47-70); Platelet Count 240 K/mm3 (150-450); RBC Distribution Width SD 43.1 fl (35.1-43.9); Red Blood Count 4.47 M/mm3 (4.6-6.2); White Blood Count 5.2 K/mm3 (4.4-11.0)
[2023-06-20 12:42] LABS: ALB/GLOB Ratio 0.8 RATIO (0.9-2.4); AST(SGOT) 28 U/L (15-37); Alanine Aminotransfer ALT/SGPT 39 U/L (16-61); Albumin, Serum 3.2 g/dL (3.2-5.0); Alkaline Phosphatase 59 U/L (45-117); Anion Gap 8 (5-15); BUN 13 mg/dL (7-18); BUN/Creat Ratio 15.6 RATIO (10-20); Calcium,Total 8.8 mg/dL (8.5-10.1); Chloride 103 mmol/L (98-107); Creatinine, Serum 0.83 mg/dL (0.70-1.30); EST Glomerular Filtration Rate 101 mL/min (>60); Est Glom Filt Rate - Afr Amer 122 mL/min (>60); Globulin 3.8 g/dL (2.2-4.2); Glucose 269 mg/dL (74-106); Potassium 3.9 mmol/L (3.5-5.1); Sodium Level 136 mmol/L (136-145)
[2023-06-21 14:09] LABS: Absolute CD4 Helper 808 /uL (359-1519); Basophils (Absolute) 0 x10E3/uL (0.0-0.2); Eosinophils 4 % (Not Estab.); Eosinophils (Absolute) 0.2 x10E3/uL (0.0-0.4); Hematocrit 43.2 % (37.5-51.0); Hemoglobin 14.4 g/dL (13.0-17.7); Immature Granulocytes 0 % (Not Estab.); Immature Granulocytes Absolute 0 x10E3/uL (0.0-0.1); Lymphs 39 % (Not Estab.); Lymphs (Absolute) 1.9 x10E3/uL (0.7-3.1); MCH 32.1 pg (26.6-33.0); MCHC 33.3 g/dL (31.5-35.7); MCV 96 fL (79-97); Monocytes 7 % (Not Estab.); Monocytes (Absolute) 0.4 x10E3/uL (0.1-0.9); Neutrophils 49 % (Not Estab.); Neutrophils (Absolute) 2.5 x10E3/uL (1.4-7.0); Percent % CD4 Pos. Lymph. 42.5 % (30.8-58.5); Platelets 248 x10E3/uL (150-450); RBC Count 4.48 x10E6/uL (4.14-5.80); RDW 11.9 % (11.6-15.4)
[2023-06-23 03:07] LABS: HIV-1 RNA by PCR, Quant. < 20 copies/mL (.)
== END | disposition home or self-care (01) ==
LOC: MTLAB 10:57
PROVIDERS: PCP Family Medicine; Referring Provider Internal Medicine; Visit Provider Internal Medicine
DX: B20 Human immunodeficiency virus [HIV] disease (principal)
CPT/HCPCS: 36415; 80053; 85025; 86361; 87536

== ENCOUNTER → 2023-08-21 | Outpatient (CLI) | payer OTHER, SELFPAY ==
--- OUTSIDE RECORDS SUMMARY | 2023-08-21 17:43 | XMS RPT_ITS | CCD ---
Author Name Unknown Address [address] [place] [address] Organization [facility] Care Team Providers Care Endocrinology Specialist Name Role Phone Belen Ford CMA Unavailable Unavailable Danay Byers MD Unavailable Susan, Asia Unavailable Unavailable PROVIDER, UNKNOWN Unavailable Unavailable No, PCP Unavailable Unavailable Susan, Asia Unavailable Unavailable PROVIDER, UNKNOWN Unavailable Unavailable No, PCP Unavailable Unavailable PROVIDER, UNKNOWN Unavailable Unavailable No, PCP Unavailable Unavailable Susan, Asia Unavailable Unavailable Belen Ford CMA Unavailable Unavailable Unavailable Primary Care Provider Unavailabl e Chantel Medina Primary Care Provider Chantel Medina Primary Care Provider Chantel Medina MD Primary Care Provider Nicholas Junior MD Unavailable Chantel Medina MD Primary Care Provider Nicholas Junior MD Unavailable VAN HER Attending Unavailable CHANTEL MEDINA NIKITA Primary Care Unavailable AILEEN CHANTEL NIKITA Primary Care Unavailable AILEEN CHANTEL NIKITA Primary Care Unavailable ANDREAS ONOFRE Referring Unavailable Jeff Cramer Attending Unavailab Asia Ames Attending Unavailable Jeff Cramer Attending Unavailab Chantel Delacruz Consulting Unavailable Susan Asia A Attending Unavailable Chantel Medina Attending Unavailable Jeff Cramer Attending Unavailab Chantel Delacruz Consulting Unavailable PHYSICIAN, NONE Primary Care Physician Unavailab mir STONE MD, DR ALMEIDA Attending Unavailabl e PHYSICIAN, NONE Primary Care Unavailable Chantel Medina Primary Care Provider ASIA CEDEÑO Attending Unavailable CHANTEL MEDINA Primary Care Unavailable ASIA CEDEÑO Attending Unavailable CHANTEL MEDINA Primary Care Unavailable Allergies Allergy Classification Reported Allergen(s) Allergy Type Date of Onset Reaction(s) Facility efavirenz (1 source) efavirenz Drug Allergy 7 Rash [facility] Sulfonamides (antibiotic) (1 source) Sulfonamides (Antibiotic) Drug Allergy 4 Itching, Rash [facility] (3 sources) Sulfonamides (Antibiotic) drug allergy 0 [facility] Work Phone: (6 sources) efavirenz; Translations: [EFAVIRENZ] Drug Allergy 7 Rash [place], [place] (4 sources) Seasonal allergy Propensity to adverse reactions to substance 7 [place] (3 sources) Sulfonamides (Antibiotic) Propensity to adverse reactions to drug 4 Itching, Rash [place] (7 sources) Sulfonamides (Antibiotic); Translations: [SULFA (SULFONAMIDE ANTIBIOTICS)] Drug Allergy 0 Rash, Itching, Hives [facility] (3 sources) Seasonal allergy; Translations: [SEASONAL ALLERGIES] Allergy to substance 7 Intolerance [facility] (1 source) efavirenz Drug Allergy 7 Rash [facility] (1 source) Other Propensity to adverse reactions 7 [facility] (1 source) Nirmatrelvir-Rit onavir Propensity to adverse reactions 3 [facility] Medications Current Medications Medication Drug Class(es) Dates Sig (Normalized) Sig (Original) ascorbic acid 60 mg / beta carotene 5000 unt / copper sulfate 40 mg / dl-alpha tocopheryl acetate 30 unt / sodium selenite 0.04 mg / zinc oxide 40 mg oral tablet (1 source) Vitamin C take 1 tablet by mouth once daily Multiple Vitamins-Mineral s (THERAPEUTIC MULTIVITAMIN-MIN ERALS) tablet Take 1 tablet by mouth daily 0 Active cobicistat 150 mg / elvitegravir 150 mg / emtricitabine 200 mg / tenofovir alafenamide 10 mg oral tablet (14 sources) Human Immunodeficiency Virus Nucleoside Analog Reverse Transcriptase Inhibitor, Human Immunodeficiency Virus Integrase Strand Transfer Inhibitor, Cytochrome P450 3A Inhibitor Start: 01-03-2023 End: 07-04-2023 take 1 tablet by mouth in the morning elvitegravir-cob icistat-emtricit abine-tenofovir alafenamide (Genvoya) [phone] MG tablet Take 1 tablet by mouth in the morning. 30 tablet 0 07/04/2023 Active Completed/Discontinued Medications Medication Drug Class(es) Dates Sig (Normalized) Sig (Original) betamethasone 0.5 mg/ml / clotrimazole 10 mg/ml topical cream (5 sources) Azole Antifungal, Corticosteroid Start: 12-17-2018 clotrimazole-beta methasone (LOTRISONE) cream Apply 1 application to affected area once daily. TO AFFECTED AREA. 45 g 2 12/17/2018 Active Problems Active Problems Problem Classification Problem Date Documented Da te Episodic/Chronic Diabetes mellitus with complications (5 sources) Type II diabetes mellitus uncontrolled; Translations: [Type 2 diabetes mellitus with hyperglycemia] Onset: 7 08-27-2016 Chronic Diabetes mellitus without complication (9 sources) Type 2 diabetes mellitus without complications; Translations: [Diabetes mellitus] Onset: 7 06-14-2017 Chronic Disorders of lipid metabolism (1 source) Mixed hyperlipidemia; Translations: [Mixed hyperlipidemia] Onset: 2 06-28-2022 Chronic Essential hypertension (1 source) Essential hypertension; Translations: [Essential (primary) hypertension] Onset: 2 06-28-2022 Chronic Genitourinary symptoms and ill-defined conditions (1 source) Incomplete emptying of bladder; Translations: [Retention of urine, unspecified] Episodic HIV infection (18 sources) Human immunodeficiency virus infection; Translations: [Human immunodeficiency virus [HIV] disease] Onset: 4 12-24-2009 Chronic Hyperplasia of prostate (3 sources) Benign prostatic hypertrophy with outflow obstruction; Translations: [Urinary frequency due to benign prostatic hypertrophy] Onset: 7 01-22-2017 Chronic Immunizations and screening for infectious disease (2 sources) Encounter for immunization; Translations: [Encounter for immunization] Onset: 8 Episodic Nutritional deficiencies (1 source) Vitamin D deficiency, unspecified; Translations: [Vitamin D deficiency, unspecified] Onset: 3 Chronic Osteoporosis (13 sources) Osteoporosis; Translations: [Age-related osteoporosis without current pathological fracture] Onset: 6 08-23-2016 Chronic Other aftercare (4 sources) shelter (current) use of insulin; Translations: [shelter (current) use of insulin] Onset: 8 Episodic Other circulatory disease (2 sources) Elevated blood-pressure reading, without diagnosis of hypertension; Translations: [Elevated blood-pressure reading, w/o diagnosis of htn] Onset: 8 Episodic Other gastrointestinal disorders (3 sources) Diarrhea, unspecified; Translations: [Diarrhea, unspecified] Onset: 3 Episodic Other inflammatory condition of skin (2 sources) Seborrheic dermatitis, unspecified; Translations: [Seborrheic dermatitis, unspecified] Onset: 7 Other injuries and conditions due to external causes (1 source) Injury of left foot; Translations: [Unspecified injury of left foot, initial encounter] Episodic Other injuries and conditions due to external causes (1 source) Unspecified injury of left foot, initial encounter; Translations: [Foot injury, left, initial encounter] Onset: 3 Episodic Other nervous system disorders (2 sources) Inclusion body myositis; 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 Other nervous system disorders (2 sources) 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]; 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 Other screening for suspected conditions (not mental disorders or infectious disease) (1 source) Encounter for screening for malignant neoplasm of prostate; Translations: [Encounter for screening for malignant neoplasm of prostate] Onset: 3 Episodic Other upper respiratory disease (1 source) Chronic rhinitis; Translations: [Chronic rhinitis] Onset: 2 06-28-2022 Chronic Thyroid disorders (1 source) Nontoxic goiter, unspecified; Translations: [Nontoxic goiter, unspecified] Onset: 3 Chronic Unclassified (3 sources) Drug therapy finding; Translations: [terminal superintendent (current) use of antibiotics] Onset: 6 01-03-2016 Unclassified (3 sources) Diabetes mellitus; Translations: [Diabetes mellitus] Onset: 5 01-08-2015 Unclassified (3 sources) Hepatitis B immune; Translations: [Hepatitis B immune] Onset: 7 06-14-2017 Past or Other Problems Problem Classification Problem Date Documented Da te Episodic/Chronic Other inflammatory condition of skin (5 sources) Seborrheic dermatitis; Translations: [Seborrheic dermatitis, unspecified] Onset: 06-14-2017 06-14-2017 Episodic Residual codes; unclassified (2 sources) Hepatitis B immune; Translations: [Other specified health status] Onset: 06-14-2017 06-14-2017 Episodic Urinary tract infections (8 sources) Urinary tract infectious disease; Translations: [Urethral meatitis] Onset: 12-04-2013 10-16-2016 Episodic Results Test Name Value Interpretation Reference Range Facil ity Vital Signs Date Time Vital Sign Value Performing Clinician Facility 12-21-2022 19:08-0400 Body temperature 97 [degF] Andreas Athy PA-C Work Phone: [facility] 12-21-2022 19:08-0400 Diastolic blood pressure 74 mm[Hg] Andreas Athy PA-C Work Phone: [facility] 12-21-2022 19:08-0400 Heart rate 86 /min Andreas Athy PA-C Work Phone: [facility] 12-21-2022 19:08-0400 Respiratory rate 18 /min Andreas Athy PA-C Work Phone: [facility] 12-21-2022 19:08-0400 SaO2% (BldA) [Mass fraction] 97 % Andreas Athy PA-C Work Phone: [facility] 12-21-2022 19:08-0400 Systolic blood pressure 142 mm[Hg] Andreas Athy PA-C Work Phone: [facility] 11-23-2022 13:55-0400 Body height 172.7 cm Van Her MD Work Phone: [facility] 11-23-2022 13:55-0400 Body weight 81.65 kg Van Her MD Work Phone: [facility] 11-23-2022 13:55-0400 Diastolic blood pressure 67 mm[Hg] Van Her MD Work Phone: [facility] 11-23-2022 13:55-0400 Heart rate 78 /min Van Her MD Work Phone: [facility] 11-23-2022 13:55-0400 SaO2% (BldA) [Mass fraction] 97 % Van Her MD Work Phone: [facility] 11-23-2022 13:55-0400 Systolic blood pressure 132 mm[Hg] Van Her MD Work Phone: [facility] 01-19-2017 10:05-0400 BMI (Body Mass Index) 23.69 kg/m2 Belen Ford CMA [facility] Work Phone: 01-19-2017 10:05-0400 BP Diastolic 80 mm[Hg] Belen Ford CMA [facility] Work Phone: 01-19-2017 10:05-0400 BP Systolic 164 mm[Hg] Belen Ford CMA [facility] Work Phone: 01-19-2017 10:05-0400 Pulse (Heart Rate) 102 /min Belen Ford CMA [facility] Work Phone: 01-19-2017 10:05-0400 Pulse Oximetry 98 % Belen Ford CMA [facility] Work Phone: 01-19-2017 10:05-0400 Weight 70.67 kg Belen Ford CMA [facility] Work Phone: 08-23-2016 10:55-0500 BMI (Body Mass Index) 22.84 kg/m2 Danay Signs MD [facility] Work Phone: 08-23-2016 10:55-0500 Body Temperature 98.3 [degF] Danay Signs MD [facility] Work Phone: 08-23-2016 10:55-0500 BP Diastolic 81 mm[Hg] Danay Signs MD [facility] Work Phone: 08-23-2016 10:55-0500 BP Systolic 133 mm[Hg] Danay Signs MD [facility] Work Phone: 08-23-2016 10:55-0500 Height 172.72 cm Danay Signs MD [facility] Work Phone: 08-23-2016 10:55-0500 Pulse (Heart Rate) 81 /min Danay Signs MD [facility] Work Phone: 08-23-2016 10:55-0500 Pulse Oximetry 97 % Danay Signs MD [facility] Work Phone: 08-23-2016 10:55-0500 Respiratory Rate 16 /min Danay Signs MD [facility] Work Phone: 08-23-2016 10:55-0500 Weight 68.27 kg Danay Signs MD [facility] Work Phone: 08-23-2016 10:55-0500 Weight 68.13 kg Danay Signs MD [facility] Work Phone: 05-25-2014 15:32-0400 Height 172.72 cm Danay Signs MD [facility] Work Phone: Encounters Encounter Date Encounter Type Care Provider Facility Start: 07-17-2023 End: 07-18-2023 ambulatory ASIA CEDEÑO [facility] Start: 07-04-2023 Refill Asia Cedeño MD Work Phone: [facility] Start: 04-10-2023 End: 04-11-[address] LELE STONE MD Facility:[facility] Start: 04-10-2023 End: 04-10-[address] ELLE STONE MD [facility] Start: 01-09-2023 ambulatory Jeff Bhardwaj acility:[facility] Start: 01-02-2023 End: 01-02-2023 ambulatory ASIA CEDEÑO [facility] Start: 12-21-2022 End: 12-21-2022 ambulatory CHANTEL NIKITAROSA MARIA MEDINA Facility:[facility] Start: 12-21-2022 End: 12-21-2022 Patient encounter procedure Andreas Onofre PA-C Work Phone: [facility] Procedures Date Procedure Procedure Detail Performing Clinician Start: 01-09-2023 PSA screening Jeffshimon [facility] Plan of Treatment Date Care Activity Detail Author Start: 03-11-2029 Screening for malignant neoplasm of colon Colon cancer screen colonoscopy [facility] Work Phone: Start: 01-04-2028 DTaP/Tdap/Td vaccine (2 - Td or Tdap) DTaP/Tdap/Td vaccine (2 - Td or Tdap) [facility] Work Phone: Start: 01-04-2028 DTaP/Tdap/Td vaccine (2 - Td) DTaP/Tdap/Td vaccine (2 - Td) [place] Start: 01-04-2028 DTaP/Tdap/Td Vaccines (2 - Td or Tdap) DTaP/Tdap/Td Vaccines (2 - Td or Tdap) [facility] Start: 2025 RSV Immunization aged 60 or older (1 - 1-dose 60+ series) RSV Immunization aged 60 or older (1 - 1-dose 60+ series) [facility] Start: 10-03-2023 Meningococcal (ACWY) vaccine (3 - Risk start after 7 months 2-dose series) [facility] Start: 07-17-2023 End: 07-17-2023 Patient encounter procedure 07/17/2023 3:00 PM EST Office Visit [facility] [address] [facility] [address] [address] [place] [id number] Asia Cedeño MD [address] [facility] [address] [place] [address] [facility] Start: 04-13-2023 Influenza vaccination Influenza Vaccine (#1) [facility] Start: 08-13-2022 DEPRESSION ASSESSMENT DEPRESSION ASSESSMENT [facility] Start: 04-13-2022 Influenza vaccination INFLUENZA (#1) [facility] Start: 06-07-2021 COVID-19 VACCINE (3 - Moderna risk series) COVID-19 VACCINE (3 - Moderna risk series) [facility] Start: 04-13-2021 Influenza vaccination Flu vaccine (#1) [facility] Work Phone: Start: 2020 PROSTATE CANCER SCREENING DISCUSSION PROSTATE CANCER SCREENING DISCUSSION [facility] Start: 06-21-2020 LIPID SCREEN LIPID SCREEN [facility] Start: 03-11-2020 Colonoscopy COLONOSCOPY [facility] Start: 03-11-2020 COLORECTAL CANCER SCREENING COLORECTAL CANCER SCREENING [facility] Start: 04-13-2019 Influenza vaccination Flu vaccine (#1) [place] Start: 08-09-2017 Pneumococcal 0-64 years Vaccine (2 of 3 - PPSV23) Pneumococcal 0-64 years Vaccine (2 of 3 - PPSV23) [place] Start: 08-09-2017 Pneumococcal 0-64 years Vaccine (2 of 4 - PPSV23) Pneumococcal 0-64 years Vaccine (2 of 4 - PPSV23) [facility] Work Phone: Start: 11-23-2016 End: 11-30-2016 *CBC with Differential *CBC with Differential [facility] Work Phone: Start: 11-23-2016 End: 2016 *CD4 - T Cells, Absolute CD4 Count *CD4 - T Cells, Absolute CD4 Count [facility] Work Phone: Start: 11-23-2016 End: 11-30-2016 *CMP Complete Metabolic Panel *CMP Complete Metabolic Panel [facility] Work Phone: Start: 11-23-2016 End: 11-30-2016 HbA1c *HgA1C [facility] Work Phone: Start: 11-23-2016 End: 12-04-2016 HIV 1 viral load *HIVVL HIV-1, Viral Load Determined by PCR [facility] Work Phone: Start: 11-23-2016 End: 2016 Reagin antibody presence *RPR [facility] Work Phone: Start: 11-23-2016 End: 11-30-2016 Thyroid stimulating hormone (TSH) *TSH [facility] Work Phone: Start: 10-30-2016 End: 10-30-2016 Urology Referral Urology Referral Bin Laws, [address] [place] [address], [address], [place], [address] [facility] Work Phone: Start: 10-16-2016 End: 10-18-2016 *UA - Urinalysis w/o Micro *UA - Urinalysis w/o Micro [facility] Work Phone: Start: 10-16-2016 End: 10-18-2016 Urine culture, bacteria *C&S, Routine Bacteria [facility] Work Phone: Start: 07-14-2016 End: 07-14-2016 Endocrinology Referral Endocrinology Referral Lori (BJ) ANITA Moreira, [address], [address], [facility], [place], [address] [facility] Work Phone: Start: 06-20-2016 End: 06-22-2016 *CBC with Differential *CBC with Differential [facility] Work Phone: Start: 06-20-2016 End: 06-22-2016 *CD4 - T Cells, Absolute CD4 Count *CD4 - T Cells, Absolute CD4 Count [facility] Work Phone: Start: 06-20-2016 End: 06-22-2016 *CMP Complete Metabolic Panel *CMP Complete Metabolic Panel [facility] Work Phone: Start: 06-20-2016 End: 06-22-2016 *Hep C Antibody, Total *Hep C Antibody, Total [facility] Work Phone: Start: 06-20-2016 End: 11-10-2016 25-Hydroxyvitamin D2+25-Hydroxyvitamin D3 [Mass/volume] in Serum or Plasma *Vitamin D (Calciferol) [facility] Work Phone: Start: 06-20-2016 End: 06-22-2016 HbA1c *HgA1C [facility] Work Phone: Start: 06-20-2016 End: 06-22-2016 Hepatitis A virus Ab [Presence] in Serum *HEAT Hepatitis A Antibdy - IGG/IGM [facility] Work Phone: Start: 06-20-2016 End: 06-22-2016 Hepatitis A virus IgM Ab [Presence] in Serum *HEAM Hepatitis A Antibdy - IGM [facility] Work Phone: Start: 06-20-2016 End: 06-22-2016 HIV 1 viral load *HIVVL HIV-1, Viral Load Determined by PCR [facility] Work Phone: Start: 06-20-2016 End: 06-22-2016 Lipid panel [AGGREGATE] *Lipid Profile [facility] Work Phone: Start: 06-20-2016 End: 06-22-2016 Reagin antibody presence *RPR [facility] Work Phone: Start: 06-20-2016 End: 06-22-2016 Thyroid stimulating hormone (TSH) *TSH [facility] Work Phone: Start: 05-20-2016 Lipid panel Lipid Panel [facility] Start: 01-03-2016 End: 01-03-2016 Bone density scan Bone Density Study [facility] Work Phone: Start: 12-13-2015 End: 12-16-2015 *CBC with Differential *CBC with Differential [facility] Work Phone: Start: 12-13-2015 End: 12-17-2015 *CD4 - T Cells, Absolute CD4 Count *CD4 - T Cells, Absolute CD4 Count [facility] Work Phone: Start: 12-13-2015 End: 12-16-2015 *CMP Complete Metabolic Panel *CMP Complete Metabolic Panel [facility] Work Phone: Start: 12-13-2015 End: 12-16-2015 HbA1c *HgA1C [facility] Work Phone: Start: 12-13-2015 End: 12-20-2015 HIV 1 viral load *HIVVL HIV-1, Viral Load Determined by PCR [facility] Work Phone: Start: 12-13-2015 End: 12-17-2015 Reagin antibody presence *RPR [facility] Work Phone: Start: 12-13-2015 End: 12-16-2015 Thyroid stimulating hormone (TSH) *TSH [facility] Work Phone: Start: 12-02-2015 Colon cancer screen colonoscopy Colon cancer screen colonoscopy [place], [place] Start: 12-02-2015 Screening for malignant neoplasm of colon Colon cancer screen colonoscopy [place] Start: 12-02-2015 Shingles Vaccine (1 of 2) Shingles Vaccine (1 of 2) [place], [place] Start: 05-20-2015 End: 06-21-2015 *CBC with Differential *CBC with Differential [facility] Work Phone: Start: 05-20-2015 End: 06-21-2015 *CD4 - T Cells, Absolute CD4 Count *CD4 - T Cells, Absolute CD4 Count [facility] Work Phone: Start: 05-20-2015 End: 06-21-2015 *CMP Complete Metabolic Panel *CMP Complete Metabolic Panel [facility] Work Phone: Start: 05-20-2015 End: 06-21-2015 *HEBSAG - Hep B Surface Antigen 6510 *HEBSAG - Hep B Surface Antigen 6510 [facility] Work Phone: Start: 05-20-2015 End: 06-21-2015 *Hep C Antibody, Total *Hep C Antibody, Total [facility] Work Phone: Start: 05-20-2015 End: 05-20-2015 25-Hydroxyvitamin D2+25-Hydroxyvitamin D3 [Mass/volume] in Serum or Plasma *Vitamin D (Calciferol) [facility] Work Phone: Start: 05-20-2015 End: 06-21-2015 BSA (Body Surface Area) *HEBSAB - Hep B Surface Antibody 6395 [facility] Work Phone: Start: 05-20-2015 End: 06-21-2015 HbA1c *HgA1C [facility] Work Phone: Start: 05-20-2015 End: 06-21-2015 HBV surface Ab Qn (S) *HEBSAB - Hep B Surface Antibody 6370 [facility] Work Phone: Start: 05-20-2015 End: 06-21-2015 Hepatitis A virus Ab [Presence] in Serum *HEAT Hepatitis A Antibdy - IGG/IGM [facility] Work Phone: Start: 05-20-2015 End: 06-21-2015 Hepatitis A virus IgM Ab [Presence] in Serum *HEAM Hepatitis A Antibdy - IGM [facility] Work Phone: Start: 05-20-2015 End: 06-22-2015 HIV 1 viral load *HIVVL HIV-1, Viral Load Determined by PCR [facility] Work Phone: Start: 05-20-2015 End: 06-21-2015 Lipid panel [AGGREGATE] *Lipid Profile [facility] Work Phone: Start: 05-20-2015 End: 06-21-2015 Reagin antibody presence *RPR [facility] Work Phone: Start: 05-20-2015 End: 06-21-2015 Thyroid stimulating hormone (TSH) *TSH [facility] Work Phone: Start: 12-22-2014 End: 12-23-2014 *CBC with Differential *CBC with Differential [facility] Work Phone: Start: 12-22-2014 End: 12-25-2014 *CD4 - T Cells, Absolute CD4 Count *CD4 - T Cells, Absolute CD4 Count [facility] Work Phone: Start: 12-22-2014 End: 12-23-2014 *CMP Complete Metabolic Panel *CMP Complete Metabolic Panel [facility] Work Phone: Start: 12-22-2014 End: 12-23-2014 HbA1c *HgA1C [facility] Work Phone: Start: 12-22-2014 End: 12-25-2014 HIV 1 viral load *HIVVL HIV-1, Viral Load Determined by PCR [facility] Work Phone: Start: 12-22-2014 End: 12-25-2014 Reagin antibody presence *RPR [facility] Work Phone: Start: 12-22-2014 End: 12-23-2014 Thyroid stimulating hormone (TSH) *TSH [facility] Work Phone: Start: 09-21-2014 End: 09-22-2014 *CBC with Differential *CBC with Differential [facility] Work Phone: Start: 09-21-2014 End: 09-22-2014 *CD4 - T Cells, Absolute CD4 Count *CD4 - T Cells, Absolute CD4 Count [facility] Work Phone: Start: 09-21-2014 End: 09-22-2014 *CMP Complete Metabolic Panel *CMP Complete Metabolic Panel [facility] Work Phone: Start: 09-21-2014 End: 09-22-2014 *MISC - Miscellaneous Lab Test #1 *MISC - Miscellaneous Lab Test #1 [facility] Work Phone: Start: 09-21-2014 End: 09-22-2014 HbA1c *HgA1C [facility] Work Phone: Start: 09-21-2014 End: 09-22-2014 HIV 1 viral load *HIVVL HIV-1, Viral Load Determined by PCR [facility] Work Phone: Start: 09-21-2014 End: 09-22-2014 Reagin antibody presence *RPR [facility] Work Phone: Start: 09-21-2014 End: 09-22-2014 Thyroid stimulating hormone (TSH) *TSH [facility] Work Phone: Start: 05-25-2014 End: 09-22-2014 Cytopath, c/v, manual Pap Smear [facility] Work Phone: Start: 2010 COLOGUARD (FIT-DNA) COLOGUARD (FIT-DNA) [facility] Start: [address] COLONOGRAPHY [facility] Start: 2010 DIABETES SCREEN DIABETES SCREEN [facility] Start: 2010 FECAL OCCULT BLOOD FECAL OCCULT BLOOD [facility] Start: 2010 SIGMOIDOSCOPY SIGMOIDOSCOPY [facility] Start: 2000 LIPID SCREEN LIPID SCREEN [facility] Start: 1984 Hepatitis B vaccine (1 of 3 - Risk 3-dose series) Hepatitis B vaccine (1 of 3 - Risk 3-dose series) [place] Start: 1984 SHINGRIX VACCINE (1 of 2) SHINGRIX VACCINE (1 of 2) [facility] Start: 1984 Urine microalbumin profile DTAP,TDAP,TD (1 - Tdap) [facility] Start: 12-02-1983 Diabetic microalbuminuria test Diabetic microalbuminuria test [place] Start: 12-02-1983 HEPATITIS C SCREENING HEPATITIS C SCREENING [facility] Start: 12-02-1983 Hepatitis C screening Hepatitis C Screening [facility] Start: 12-02-1983 Measles,Mumps,Rubella (MMR) vaccine (1 of 2 - Risk 2-dose series) Measles,Mumps,Rubella (MMR) vaccine (1 of 2 - Risk 2-dose series) [place] Start: 12-02-1983 MMR (1 of 2 - Risk 2-dose series) MMR (1 of 2 - Risk 2-dose series) [facility] Start: 12-02-1983 MMR Vaccines (1 of 2 - Risk 2-dose series) MMR Vaccines (1 of 2 - Risk 2-dose series) [facility] Start: 1977 Adult depression screening assessment DEPRESSION SCREENING [facility] Start: 1977 COVID-19 Vaccine (1) COVID-19 Vaccine (1) [facility] Work Phone: Start: 12-02-1975 [object Object] Diabetic foot exam [place], [place] Start: 12-02-1975 A1C test (Diabetic or Prediabetic) A1C test (Diabetic or Prediabetic) [place] Start: 12-02-1975 Diabetic foot examination [facility] Start: 12-02-1975 Diabetic retinal exam Diabetic retinal exam [place], [place] Start: 12-02-1975 Glaucoma screening Diabetes: Retinopathy Screening [facility] Start: 12-02-1975 HbA1c (Bld) [Mass fraction] A1C test (Diabetic or Prediabetic) [place] Start: 12-02-1975 Hemoglobin A1c measurement A1C test (Diabetic or Prediabetic) [facility] Work Phone: Start: 12-02-1975 Lipid panel Lipid screen [place], [place] Start: 12-02-1975 Lipid screen Lipid screen [place] Start: 12-02-1975 Preventive dental service Diabetes: Dental Exam [facility] Start: 12-02-1971 PNEUMOCOCCAL (1 - PCV) PNEUMOCOCCAL (1 - PCV) [facility] Start: 12-02-1967 MENINGOCOCCAL CONJUGATE (1 - Risk 2-dose series) MENINGOCOCCAL CONJUGATE (1 - Risk 2-dose series) [facility] Start: 1966 HEPATITIS A (1 of 2 - Risk 2-dose series) HEPATITIS A (1 of 2 - Risk 2-dose series) [facility] Start: 07-03-1966 MENINGOCOCCAL CONJUGATE (1 - Risk start 2-23 months series) MENINGOCOCCAL CONJUGATE (1 - Risk start 2-23 months series) [facility] Start: 1965 Creatinine measurement Creatinine monitoring [place], [place] Start: 1965 Creatinine monitoring Creatinine monitoring [place], [place] Start: 1965 Hemoglobin A1c measurement Diabetes: Hemoglobin A1C [facility] Start: 1965 HEPATITIS B (1 of 3 - 3-dose series) HEPATITIS B (1 of 3 - 3-dose series) [facility] Start: 1965 Hepatitis B Vaccines (1 of 3 - 3-dose series) Hepatitis B Vaccines (1 of 3 - 3-dose series) [facility] Start: 1965 Hepatitis C screening Hepatitis C screen [facility] Work Phone: Start: 1965 Potassium monitoring Potassium monitoring [place], [place] Start: 1965 Screening for malignant neoplasm of colon [facility] Start: 1965 Screening for osteoporosis Bone Density Scan [facility] Patient Education Silvia In fectious Disease [facility] Immunizations Immunization Date Immunization Notes Care Provider Fa cility 12-07-2022 Pneumococcal Conjuga te PCV20, Pf (Prevnar 20) Asia Cedeño MD Work Phone: [facility] 06-27-2022 Influenza, injectabl e, Madin [place] Canine Kidney, preservative free, quadrivalent Asia Cedeño MD Work Phone: [facility] 06-27-2022 influenza virus vacc ine, unspecified formulation Asia Cedeño MD Work Phone: [facility] 03-03-2022 zoster vaccine recombinant Asia Cedeño MD Work Phone: [facility] 11-28-2021 zoster vaccine recombinant Asia Cedeño MD Work Phone: [facility] 06-13-2020 influenza virus vacc ine, unspecified formulation [facility] , [place] 06-09-2020 influenza, injectabl e, quadrivalent, preservative free Asia Cedeño MD Work Phone: [facility] Work Phone: 07-14-2019 Influenza, injectabl e, Madin [place] Canine Kidney, preservative free, quadrivalent Asia Cedeño MD Work Phone: [facility] Work Phone: 06-04-2019 influenza virus vacc ine, unspecified formulation [facility] , [place] 04-21-2019 hepatitis A vaccine, adult dosage [facility] 10-03-2018 hepatitis A vaccine, adult dosage [facility] 10-03-2018 meningococcal oligosaccharide (groups A, C, Y and W-135) diphtheria toxoid conjugate vaccine (MCV4O) [facility] 10-03-2018 meningococcal vaccin e of unknown formulation and unknown serogroups [facility], [place] 06-04-2018 influenza, injectabl e, quadrivalent, preservative free [facility], [place] 05-13-2018 influenza, seasonal, injectable Asia Cedeño MD Work Phone: [facility] 01-03-2018 meningococcal oligosaccharide (groups A, C, Y and W-135) diphtheria toxoid conjugate vaccine (MCV4O) [facility] 01-03-2018 tetanus toxoid, redu joselyn diphtheria toxoid, and acellular pertussis vaccine, adsorbed [facility] 06-14-2017 influenza, injectabl e, quadrivalent, preservative free [facility] 06-14-2017 pneumococcal conjuga te vaccine, 13 valent [facility] Payers Date Payer Category Payer Self-pay 2021 Private Health Insurance [id number] 2021 Unknown [id number] 2017 Unknown BCBS [place] P PO xxxxxxxxxxxx 2017-Present [address] [place] [address] xxxxxxxxxxxx [id number] 2017 Unknown [place] PO [id number] 2017-Present [address] [place] [address] [id number] 1965 Unknown [id number] Unknown Unknown [id number] Unknown [id number] Unknown [id number] Unknown [id number] Unknown [id number] Unknown [id number] Social History Date Type Detail Facility Start: 01-09-2020 End: 11-23-2022 Tobacco smoking status NHIS Never smoker [facility] Start: 01-09-2020 End: 12-21-2022 Alcohol intake Current drinker of alcohol (finding) [place] Start: 05-21-2017 Alcohol Comment beer or mixed drink on weekend [place], [place] Start: 1965 Sex Assigned At Not on file [place], [place] Start: 07-13-2020 End: 11-23-2022 Tobacco use and exposure Never used [facility] Start: 07-13-2020 End: 01-02-2023 [facility] Start: 04-21-2019 End: 01-02-2023 Alcohol intake Yes [place] Start: 12-17-2018 History SDOH Alcohol Comment rare [facility] Start: 11-13-2022 End: 11-23-2022 Exposure to SARS-CoV-2 (event) Not sure [facility] Start: 01-02-2023 History of Social function [facility] Medical Equipment Procedure Code Equipment Code Equipment Origin al Text Equipment Identifier Dates BLOOD GLUC METER DISP-STRIPS RELION ALL-IN-ONE FELISA [id number] Start: 08-23-2016 End: 11-21-2024 B-D UF III MINI PEN NEEDLES 31G X 5 MM [facility] [id number] Start: 02-16-2021 Clinical Notes 04-04-2022 to 07-04-2023 Telephone Encounter - Elizabeth Villeda - 07/04/2023 9:16 AM ESTTelephone Encounter - Elizabeth Villeda - 07/04/2023 9:16 AM Darshana Onofre PA-C - 12/21/2022 7:31 PM EDT Note Date & Type Note Facility 07-04-2023 Telephone encounter Note Patient was last seen 01/02/23, follow up appt is 07/17/23. Patient had labs done last week at [facility] and is awaiting results. Refill is pended to get patient until his follow up, please [facility] 07-04-2023 Miscellaneous Notes Patient was last seen 01/02/23, follow up appt is 07/17/23. Patient had labs done last week at [facility] and is awaiting results. Refill is pended to get patient until his follow up, please documented in this encounter [facility] 04-10-2023 Evaluation + Plan note Diagnostic Tests PendingTissue Transglutaminase Ab (IGA) 04/10/23Vitamin A Level 04/10/23 [facility] 12-21-2022 Note HNO ID: [id number] Author: Andreas Onofre PA-C Service: ? Author Type: Physician Academic Advisor Type: Progress Notes Filed: 12/21/2022 7:56 PM Note Text: This note was created using [email or web address]. Subjective Josse Median is a 57 year old male. HPI Patient presents with a chief complaint of left foot pain. 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 His leg on the right had given out so he fell bending his foot backwards earlier today. He is got pain and swelling in his toes and distal foot. He has actually broken the foot twice previously. The last time was a year and half ago. Very painful to bear weight. Review of Systems Constitutional: Negative. HENT: Negative. Respiratory: Negative. Cardiovascular: Negative. Gastrointestinal: Negative. Musculoskeletal: Left foot pain All other systems reviewed and are negative. PAST MEDICAL HISTORY Diagnosis Date Diabetes mellitus type 1 (HCC) HIV (human immunodeficiency virus infection) ([facility]) Current Outpatient Medications Medication Sig Dispense Refill gabapentin (NEURONTIN) 300 mg capsule Take 1 capsule by mouth daily at bedtime for 360 days. 90 capsule 3 cholecalciferol, vitamin D3, (VITAMIN D3 50 MCG, 2,000 UNIT, GUMMIES) once daily. rosuvastatin (CRESTOR) 10 mg tablet Take 10 mg by mouth once daily. Docosahexanoic Acid-Eicosapent 120-180 mg capsule Take 1 capsule by mouth once daily. Magnesium Gluconate 30 mg (550 mg) tab Take by mouth once daily. ramipril (ALTACE) 5 mg capsule once daily. TRESIBA FLEXTOUCH U-100 100 unit/mL (3 mL) injection pen 20 Units daily at bedtime. HUMALOG KWIKPEN INSULIN 100 unit/mL Inject subcutaneously three times daily before meals. 8 units before breakfast, 10 units before lunch, 12 units before dinner calcium carbonate (CALTRATE) 600 mg calcium (1,500 mg) tab cholecalciferol, Vitamin D3, (VITAMIN D3) 1,250 mcg (50,000 unit) cap capsule wgtahujsnqik-yqvudgfhxe-utbsufmw abine-tenofovir alafenamide (GENVOYA) [phone] mg per tablet Take 1 tablet by mouth daily with food. LOPINAVIR/RITONAVIR (KALETRA ORAL) Take 50 mg by mouth. 2 tablets bid doxazosin (CARDURA) 4 mg tablet TAKE ONE TABLET BY MOUTH EVERY DAY (Patient not taking: Reported on 12/21/2022) 30 tablet 0 clotrimazole-betamethasone (LOTRISONE) cream Apply 1 application to affected area once daily. TO AFFECTED AREA. (Patient not taking: No sig reported) 45 g 2 INSULIN ZINC HUMAN REC (NOVOLIN L SUBCUTANE.) Inject subcutaneously twice daily. (Patient not taking: No sig reported) Etravirine (INTELENCE) 100 mg tablet Take 200 mg by mouth twice daily with meals. (Patient not taking: No sig reported) raltegravir (ISENTRESS) 400 mg tablet Take 400 mg by mouth twice daily. (Patient not taking: No sig reported) maraviroc (SELZENTRY) 150 mg tab Take by mouth twice daily. phenazopyridine 200 mg tablet Take 1 tablet by mouth three times daily as needed. (Patient not taking: No sig reported) 30 tablet 3 No current facility-administered medications for this visit. No past surgical history on file. No family history on file. Social History Tobacco Use Smoking status: Never Smokeless tobacco: Never Substance Use Topics Alcohol use: Yes Comment: rare Objective BP 142/74 Pulse 86 Temp 36.1 ?C (97 ?F) (Tympanic) Resp 18 SpO2 97% Physical Exam Vitals reviewed. Constitutional: Appearance: Normal appearance. HENT: Head: Normocephalic and atraumatic. Musculoskeletal: Comments: Patient tender on palpation over the second through fourth distal metatarsals dorsally. Some bruising and swelling. Also tender over the second through fourth toes. Pain with range of motion. Cap refill brisk less than 2 seconds. Pedal pulses 2+. No tenderness of the medial or lateral malleolus. Skin: General: Skin is warm and dry. Neurological: Mental Status: He is alert. Assessment and Plan ASSESSMENT/PLAN: 1. Foot injury, left, initial encounter - ICD9: 959.7, ICD10: S99.922A X-rays of the left foot show no fractures. Recommended rest, ice, using his boot as needed. He has 1 from previous fracture. Otherwise if not improving over the next week follow-up with PCP for possible repeat x-rays. Patient agreeable with plan. Ibuprofen and ice, keep it elevated. - XR FOOT GENERAL 3V AP/LAT/OBL LEFT Andreas Onofre PA-C [facility] 12-21-2022 Note HNO ID: [id number] Author: RT Laure(R) Service: ? Author Type: Copy Coordinator Type: Progress Notes Filed: 12/21/2022 7:33 PM Note Text: Radiology Service Progress Note PATIENT NAME: Josse Medina DATE OF SERVICE: December 21, 2022 TIME: 7:21 PM PATIENT IDENTITY VERIFICATION COMPLETED USING TWO (2) IDENTIFIERS: Name and Date of confirmed by patient verbally. FALL SCREENING: Has the patient had 2 falls in the last year or 1 fall with injury or currently using an Ambulatory Assistive Device (Walker, Cane, Wheelchair, Crutches, etc.)? Yes, Patient High Risk for Falls What interventions were put in place to prevent falls during this visit? Offered Assistance with Transfers/Clothing, Instructed Patient to Remain Seated (Not on Exam Table) Until Exam, and Increased Observations by Caregivers PATIENT GENDER DATA: Male PATIENT RELEVANT IMPLANT DATA REVIEWED: Yes RADIOLOGY DEPARTMENT: General X-ray: Exam(s) Completed: Lower Extremity X-Ray(s): Foot, Left PERIPHERAL IV DATA: Not applicable SIGNED BY: RT Laure(R) December 21, 2022 7:21 PM [facility] 12-21-2022 History of Presen t illness Narrative This note was created using [email or web address]. Subjective Josse Medina is a 57 year old male. HPI Patient presents with a chief complaint of left foot pain. 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 His leg on the right had given out so he fell bending his foot backwards earlier today. He is got pain and swelling in his toes and distal foot. He has actually broken the foot twice previously. The last time was a year and half ago. Very painful to bear weight. Review of Systems Constitutional: Negative. HENT: Negative. Respiratory: Negative. Cardiovascular: Negative. Gastrointestinal: Negative. Musculoskeletal: Left foot pain All other systems reviewed and are negative. PAST MEDICAL HISTORY Diagnosis Date Diabetes mellitus type 1 (HCC) HIV (human immunodeficiency virus infection) ([facility]) Current Outpatient Medications Medication Sig Dispense Refill gabapentin (NEURONTIN) 300 mg capsule Take 1 capsule by mouth daily at bedtime for 360 days. 90 capsule 3 cholecalciferol, vitamin D3, (VITAMIN D3 50 MCG, 2,000 UNIT, GUMMIES) once daily. rosuvastatin (CRESTOR) 10 mg tablet Take 10 mg by mouth once daily. Docosahexanoic Acid-Eicosapent 120-180 mg capsule Take 1 capsule by mouth once daily. Magnesium Gluconate 30 mg (550 mg) tab Take by mouth once daily. ramipril (ALTACE) 5 mg capsule once daily. TRESIBA FLEXTOUCH U-100 100 unit/mL (3 mL) injection pen 20 Units daily at bedtime. HUMALOG KWIKPEN INSULIN 100 unit/mL Inject subcutaneously three times daily before meals. 8 units before breakfast, 10 units before lunch, 12 units before dinner calcium carbonate (CALTRATE) 600 mg calcium (1,500 mg) tab cholecalciferol, Vitamin D3, (VITAMIN D3) 1,250 mcg (50,000 unit) cap capsule bmgbwufriffk-jodwtijrvm-tbzilzax abine-tenofovir alafenamide (GENVOYA) [phone] mg per tablet Take 1 tablet by mouth daily with food. LOPINAVIR/RITONAVIR (KALETRA ORAL) Take 50 mg by mouth. 2 tablets bid doxazosin (CARDURA) 4 mg tablet TAKE ONE TABLET BY MOUTH EVERY DAY (Patient not taking: Reported on 12/21/2022) 30 tablet 0 clotrimazole-betamethasone (LOTRISONE) cream Apply 1 application to affected area once daily. TO AFFECTED AREA. (Patient not taking: No sig reported) 45 g 2 INSULIN ZINC HUMAN REC (NOVOLIN L SUBCUTANE.) Inject subcutaneously twice daily. (Patient not taking: No sig reported) Etravirine (INTELENCE) 100 mg tablet Take 200 mg by mouth twice daily with meals. (Patient not taking: No sig reported) raltegravir (ISENTRESS) 400 mg tablet Take 400 mg by mouth twice daily. (Patient not taking: No sig reported) maraviroc (SELZENTRY) 150 mg tab Take by mouth twice daily. phenazopyridine 200 mg tablet Take 1 tablet by mouth three times daily as needed. (Patient not taking: No sig reported) 30 tablet 3 No current facility-administered medications for this visit. No past surgical history on file. No family history on file. Social History Tobacco Use Smoking status: Never Smokeless tobacco: Never Substance Use Topics Alcohol use: Yes Comment: rare Objective BP 142/74 Pulse 86 Temp 36.1 C (97 F) (Tympanic) Resp 18 SpO2 97% Physical Exam Vitals reviewed. Constitutional: Appearance: Normal appearance. HENT: Head: Normocephalic and atraumatic. Musculoskeletal: Comments: Patient tender on palpation over the second through fourth distal metatarsals dorsally. Some bruising and swelling. Also tender over the second through fourth toes. Pain with range of motion. Cap refill brisk less than 2 seconds. Pedal pulses 2+. No tenderness of the medial or lateral malleolus. Skin: General: Skin is warm and dry. Neurological: Mental Status: He is alert. Assessment and Plan ASSESSMENT/PLAN: 1. Foot injury, left, initial encounter - ICD9: 959.7, ICD10: S99.922A X-rays of the left foot show no fractures. Recommended rest, ice, using his boot as needed. He has 1 from previous fracture. Otherwise if not improving over the next week follow-up with PCP for possible repeat x-rays. Patient agreeable with plan. Ibuprofen and ice, keep it elevated. - XR FOOT GENERAL 3V AP/LAT/OBL LEFT Andreas Onofre PA-C documented in this encounter [facility] 11-23-2022 Note HNO ID: [id number] Author: Van Her MD Service: ? Author Type: Physician Type: Progress Notes Filed: 11/24/2022 8:57 AM Note Text: [facility] Follow up/ Established patient visit Individuals who were included in, or assisted with the encounter were: Josse Medina Rufus Her MD Chief Complaint/Issues: Josse Medina is a 56 year old male seen in the [facility] for: IBM Originally seen 12/2020 Onset 11/2018 with quadriceps weakness R worse The diagnosis of IBM is secure based upon - pattern of weakness (long finger flexor, quadriceps, sparing hip flexion, spinati) - EMG with myopathic features An EMG done (locally) on 11/08/2020, of both legs and the right arm, 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30, FH +), overactive bladder Most Recent Neurological Assessment and Plan: Last Filed Values Date of Most Recent Assessment and Plan 10/20/21 Specialty Neuromuscular Assessment IBM Symptomatic since 11/2018 Remains ambulatory wo assistive device Now on SSD Fell once Slight worsening in some manual strength assessments HIV (+) T1D HTN Plan Discussed safety and fall prevention No specific treatment FU 6 months VV 1 year in person HPI/Interval History: Since 10/2021 Doing well overall Weakness: No change - stabilized No falls Can catch himself L foot # x 2 has healed well Normally no assistive device except on long walks Hands - L is worse Hard with jars cans Can cut food Getting dressed some buttons are hard - pants can do Swallowing occasionally has to slow down - no choking Medically - diabetes is well - endocrinology - 4 shots a day - Hba1c 6.5 - HIV controlled - aching in legs at night only on GBP 100 at bedtime - wakens with pain 0600 Is on disability on SSD 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 He is accompanied by his spouse Taqueria. General: Awake, alert, interactive, no acute distress, good nutritional status, normal development, well-kept Neurological Exam Mental Status Alert, fully oriented, attentive, with normal cognition, memory, speech and affect. Cranial Nerves Visual jose intact. Pupils reactive. Extraocular movements conjugate and full. No ptosis. No nystagmus. Face symmetric and strong. Palate and tongue normal. XI normal. Motor Examination and Coordination Neuromuscular Examination Axial Muscles Ptosis: R: none L: none Face-eye closure: normal Face-mouth closure: normal Tongue: normal Tongue atrophy: no Neck flexion: 5 Neck extension: 5 Scapular winging: absent Accessory respiratory: absent Extremity Muscles Upper Extremity Right Left Shoulder abduction 5- 4+ Elbow flexion 4+ 4 Elbow extension 4- 4- Wrist extension 5- 5- Finger flexion/senior software development manager 4 4- Finger pollicis longus 4- 4- Flexor digitorum profundus 4- 4- Finger extension 4+ 4+ First dorsal interosseous 4+ 4+ Abductor digiti minimi 4+ 4- L ADM weaker Abductor pollicis brevis 4+ 4 Lower Extremity Right Left Hip flexion 4+ 5- R slight weaker Knee flexion 5- 5- Knee extension 3 3+ Unable to straighten R knee Ankle plantarflexion 5- 5- Ankle dorsiflexion 5- 5- Atrophy: Bilateral quadriceps atrophy. Left worse than right volar forearm atrophy. Characteristic IBM pattern. 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 = Data Review Objective Current Outpatient Medications Medication Sig gabapentin (NEURONTIN) 100 mg capsule Take 1 capsule by mouth daily at bedtime for 180 days. doxazosin (CARDURA) 4 mg tablet TAKE ONE TABLET BY MOUTH EVERY DAY cholecalciferol, vitamin D3, (VITAM (more content not included)... [facility] 11-23-2022 History of Presen t illness Narrative Images from the original note were not included. 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30, FH +), overactive bladder Most Recent Neurological Assessment and Plan: Last Filed Values Date of Most Recent Assessment and Plan 10/20/21 Specialty Neuromuscular Assessment IBM Symptomatic since 11/2018 Remains ambulatory wo assistive device Now on SSD Fell once Slight worsening in some manual strength assessments HIV (+) T1D HTN Plan Discussed safety and fall prevention No specific treatment FU 6 months VV 1 year in person HPI/Interval History: Since 10/2021 Doing well overall Weakness: No change - stabilized No falls Can catch himself L foot # x 2 has healed well Normally no assistive device except on long walks Hands - L is worse Hard with jars cans Can cut food Getting dressed some buttons are hard - pants can do Swallowing occasionally has to slow down - no choking Medically - diabetes is well - endocrinology - 4 shots a day - Hba1c 6.5 - HIV controlled - aching in legs at night only on GBP 100 at bedtime - wakens with pain 0600 Is on disability on SSD 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 General: Awake, alert, interactive, no acute distress, good nutritional status, normal development, well-kept Neurological Exam Mental Status Alert, fully oriented, attentive, with normal cognition, memory, speech and affect. Cranial Nerves Visual jose intact. Pupils reactive. Extraocular movements conjugate and full. No ptosis. No nystagmus. Face symmetric and strong. Palate and tongue normal. XI normal. Motor Examination and Coordination Neuromuscular Examination Axial Muscles Ptosis: R: none L: none Face-eye closure: normal Face-mouth closure: normal Tongue: normal Tongue atrophy: no Neck flexion: 5 Neck extension: 5 Scapular winging: absent Accessory respiratory: absent Extremity Muscles Upper Extremity Right Left Shoulder abduction 5- 4+ Elbow flexion 4+ 4 Elbow extension 4- 4- Wrist extension 5- 5- Finger flexion/senior software development manager 4 4- Finger pollicis longus 4- 4- Flexor digitorum profundus 4- 4- Finger extension 4+ 4+ First dorsal interosseous 4+ 4+ Abductor digiti minimi 4+ 4- L ADM weaker Abductor pollicis brevis 4+ 4 Lower Extremity Right Left Hip flexion 4+ 5- R slight weaker Knee flexion 5- 5- Knee extension 3 3+ Unable to straighten R knee Ankle plantarflexion 5- 5- Ankle dorsiflexion 5- 5- Atrophy: Bilateral quadriceps atrophy. Left worse than right volar forearm atrophy. Characteristic IBM pattern. Contractures: Absent JUNG: N Tremor: No Reflexes Deep tendon reflexes graded by MRC Deep Tendon Reflexes Right Left Biceps 1+ 1+ Triceps 1+ 1+ Brachioradialis 1+ 1+ Patellar Tr Tr Achilles Tr Tr Sensation Not examined Light touch: normal Gait Comes: independently ambulatory Arises: with arm support Gait: Proximal weakness Assessment & Plan 11/24/2022 - Neuromuscular, Van Her MD ASSESSMENT IBM Symptomatic since 11/2018 Stable over pas tyear by MMT and function Remains ambulatory wo assistive device HIV (+) T1D HTN PLAN No specific treatment Increase GBP to 300 at night from 100 for leg aches Asking about support group - [email or web address] [facility] FU year in person Van Her MD Encounter Diagnosis ICD-10-CM 1. 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 = Data Review Objective Current Outpatient Medications Medication Sig gabapentin (NEURONTIN) 100 mg capsule Take 1 capsule by mouth daily at bedtime for 180 days. doxazosin (CARDURA) 4 mg tablet TAKE ONE TABLET BY MOUTH EVERY DAY cholecalciferol, vitamin D3, (VITAMIN D3 50 MCG, 2,000 UNIT, GUMMIES) once daily. rosuvastatin (CRESTOR) 10 mg tablet Take 10 mg by mouth once daily. Docosahexanoic Acid-Eicosapent 120-180 mg capsule Take 1 capsule by mouth once daily. Magnesium Gluconate 30 mg (550 mg) tab Take by mouth once daily. ramipril (ALTACE) 5 mg capsule once daily. TRESIBA FLEXTOUCH U-100 100 unit/mL (3 mL) injection pen 20 Units daily at bedtime. HUMALOG KWIKPEN INSULIN 100 unit/mL Inject subcutaneously three times daily before meals. 8 units before breakfast, 10 units before lunch, 12 units before dinner calcium carbonate (CALTRATE) 600 mg calcium (1,500 mg) tab cholecalciferol, Vitamin D3, (VITAMIN D3) 1,250 mcg (50,000 unit) cap capsule iwnyolcueyfn-qskdqynivb-ifllucwh abine-tenofovir alafenamide (GENVOYA) 258-238-080-10 mg per tablet Take 1 tablet by mouth daily with food. LOPINAVIR/RITONAVIR (KALETRA ORAL) Take 50 mg by mouth. 2 tablets bid maraviroc (SELZENTRY) 150 mg tab Take by mouth twice daily. clotrimazole-betamethasone (LOTRISONE) cream Apply 1 application to affected area once daily. TO AFFECTED AREA. (Patient not taking: No sig reported) INSULIN ZINC HUMAN REC (NOVOLIN L SUBCUTANE.) Inject subcutaneously twice daily. (Patient not taking: No sig reported) Etravirine (INTELENCE) 100 mg tablet Take 200 mg by mouth twice daily with meals. (Patient not taking: No sig reported) raltegravir (ISENTRESS) 400 mg tablet Take 400 mg by mouth twice daily. (Patient not taking: No sig reported) phenazopyridine 200 mg tablet Take 1 tablet by mouth three times daily as needed. (Patient not taking: No sig reported) No current facility-administered medications for this visit. ACTIVE PROBLEM LIST Meatitis, Urethral HIV (Human Immunodeficiency Virus Infection) (Hcc) PAST MEDICAL HISTORY Diagnosis Date Diabetes mellitus type 1 (HCC) HIV (human immunodeficiency virus infection) (HCC) No past surgical history on file. Social History Tobacco Use Smoking status: Never Smokeless tobacco: Never Substance Use Topics Alcohol use: Yes Comment: rare No family history on file. Review of Systems Last 10 Encounter Wt Readings: Date: Wt: 11/23/2022 81.6 kg (180 lb) 10/20/2021 77.1 kg (170 lb) 04/21/2021 74.8 kg (165 lb) 01/18/2021 77.1 kg (170 lb) 12/12/2018 72.1 kg (159 lb) 12/04/2013 66.2 kg (146 lb) Lab and Test Review: General Medical Labs: Last 3 sets of CBC, CMP, Lipids, HBA1C, TSH No flowsheet data found.No flowsheet data found.No flowsheet data found.No flowsheet data found.No flowsheet data found. Common Neurology Labs: Last 3 sets of ESR, CRP, CK, Vitamin B12, MMA, Folate, Vitamin D, Copper No flowsheet data found.No flowsheet data found. CK Latest Ref Rng & Units 12/29/2020 CK 51 - 298 U/L 380(H) No flowsheet data found.No flowsheet data found.No flowsheet data found. Vitamin D Latest Ref Rng & Units 12/17/2018 VITAMIN D 25 HYDROXY 31.0 - 80.0 ng/mL 43.5 No flowsheet data found. Muscle-Related Labs: Last 3 sets of Aldolase, AChR ab(binding, modulating, blocking), Striational Ab, MUSK Ab, P/Q-type voltage gated calcium channel antibody(VOLTCA), Polymyositis and Dermatomyositis Panel, NT5c1A Ab, HMGCR Ab Aldolase Latest Ref Rng & Units 12/29/2020 ALDOLASE 1.5 - 8.1 U/L 9.6(H) No flowsheet data found.No flowsheet data found.No flowsheet data found.No flowsheet data found. Polymyositis & Dermatomyositis Latest Ref Rng & Units 12/29/2020 DIANA-1 ANTIBODY, IGG 0 - 40 AU/mL 3 NH-[address] Negative Negative PL-12 ANTIBODY Negative Negative P155/140 ANTIBODY Negative Negative EJ ANTIBODY Negative Negative SRP ANTIBODY Negative Negative OJ ANTIBODY Negative Negative SAE1 ANTIBODY Negative Negative NXP-2 ANTIBODY Negative Negative MDA5 ANTIBODY Negative Negative TIF-1 GAMMA ANTIBODY Negative Negative MYOSITIS INTERPRETATION - SEE NOTE No flowsheet data found.No flowsheet data found. Recent EMG's No resulted procedures found. Recent Imaging and Surgeries <style>.[email or web address] td vertical-align:middle;</style> Images & Surgeries 01/27/21 (21m 27d) Beatriz Shipman MD Biopsy Muscle Deep - Left 08/26/20 Other Outside Cd [employer] Import 02/20/19 Xr Foot General 3v Ap/Lat/Obl Left 01/14/19 Xr Foot General 3v Ap/Lat/Obl Left 12/12/18 Xr Foot General 3v Ap/Lat/Obl Left Showing events since 11/24/17. Timeline No events since 11/23/22. Outside Data/Labs: Subjective Patient-Entered Data: NM Treatment and Fall Risk No flowsheet data found. PROMIS-10 No flowsheet data found. PHQ-9 No flowsheet data found.(0-4) minimal depression (5-9) mild depression (10-14) moderate depression (15-19) moderately severe depression (20-27) severe depression Sleep No flowsheet data found. No flowsheet data found. I spent a total of 30 minutes on the date of the service which included preparing to see the patient, [id number] patient care, completing clinical documentation, obtaining and/or reviewing separately obtained history, performing a medically appropriate examination, counseling and educating the patient/family/caregiver, ordering medications, tests, or procedures, communicating with other HCPs (not separately reported), independently interpreting results (not separately reported), communicating results to the patient/family/caregiver, and care coordination (not separately reported). Van Her MD documented in this encounter [facility] 10-02-2022 Miscellaneous Notes Refills requested for Neurontin 100 mg. Medication, dose, and refill interval appropriate. Follow up appointment scheduled for 11/08/[address] Her. Please review and process accordingly. 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 Her Call from patient requesting refill. Please E-Scribe Last OV: 04/21/2021 Future OV: 10/31/2022 soonest available Requested Prescriptions Pending Prescriptions Disp Refills gabapentin (NEURONTIN) 100 mg capsule 30 capsule 5 Sig: Take 1 capsule by mouth daily at bedtime for 180 days. Pharmacy Name: [facility] Sonia Cancino documented in this encounter [facility] 08-28-2022 Miscellaneous Notes 30 day supply given. Patient needs current OV for further refills. Patient advised. documented in this encounter [facility] 04-04-2022 Miscellaneous Notes Refills requested for Neurontin 100 mg. Medication, dose, and refill interval appropriate. Follow up appointment scheduled on 04/27/[address] Her. Please review and process accordingly. 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 Please E-Scribe Last OV: 10/20/2021 with Alexi Future OV: 04/27/2022 with Alexi Requested Prescriptions Pending Prescriptions Disp Refills gabapentin (NEURONTIN) 100 mg capsule 30 capsule 5 Sig: Take 1 capsule by mouth daily at bedtime for 180 days. 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 [facility] Diagnosis Foot injury, left, initial encounter- Primary [facility] Narrative No data available for this section [facility] Hospital Discharge instructions No data available for this section [facility] Progress note No data available for this section [facility] Reason for referral (narrative)* Diagnostic Procedure Only (Urgent) - Closed Specialty Diagnoses / Procedures Referred By Joseph michelle Referred To Contact XR IMAGING Diagnoses Foot injury, left, initial encounter Procedures XR FOOT GENERAL 3V AP/LAT/OBL LEFT RADEX FOOT COMPLETE MINIMUM 3 VIEWS Andreas Onofre PA-C [address] [place] [address] Xr Imaging Referral ID Status Reason Start Date Expiration Date V isits Requested Visits Authorized [id number] Closed Auto-Generate d Referral 12/21/2022 01/20/2024 1 1 [facility] Summary Purpose Family History No Family History Records FoundNo Family History Records FoundNo Family History Records FoundNo Family History Records Found No data available for this section No Family History Records FoundNo Family History Records Found Advance Directives No Advanced Directives Records FoundDocuments on File Type Date Recorded Patient Ship Purser Expl anation Advance Directives and Living Will Power of Demonstrator Sales Documents on File Type Date Recorded Patient Ship Purser Expl anation ACP-Advance Directive ACP-Power of Demonstrator Sales Reason for Referral Specialty Diagnoses / Procedures Referred By Joseph michelle Referred To Contact Asia Cedeño MD [address] [place] [address] [address] [place] [address] Referral ID Status Reason Start Date Expiration Date Visits Re quested Visits Authorized [id number] Closed 1 1 Additional Source Comments (unrecognized sect ion and content) No Status Records FoundNo Status Records FoundNo Status Records FoundNo Status Records FoundNo Status Records FoundNo Status Records Found INFORMATION SOURCE (unrecogn ized section and content) DATE CREATED AUTHOR AUTHOR'S ORGANIZ ATION 06/17/2022 [employer] [facility] DATE CREATED AUTHOR AUTHOR'S ORGANIZ ATION 12/24/2022 [facility] DATE CREATED AUTHOR AUTHOR'S ORGANIZ ATION 01/19/2023 [facility] DATE CREATED AUTHOR AUTHOR'S ORGANIZ ATION 04/12/[address] [facility] ([place]) DATE CREATED AUTHOR AUTHOR'S ORGANIZ ATION 07/23/2023 [facility] [employer] [facility] Source Comments (unrecognize d section and content) In the event this informatio n is protected by the Federal Confidentiality of Alcohol and Drug Abuse Patient Records regulations: The Federal rules restrict any use of the information to criminally investigate or prosecute any alcohol or drug abuse patient.[facility] the event this information is protected by the Federal Confidentiality of Alcohol and Drug Abuse Patient Records regulations: The Federal rules restrict any use of the information to criminally investigate or prosecute any alcohol or drug abuse patient.[facility] the event this information is protected by the Federal Confidentiality of Alcohol and Drug Abuse Patient Records regulations: The Federal rules restrict any use of the information to criminally investigate or prosecute any alcohol or drug abuse patient.[facility] the event this information is protected by the Federal Confidentiality of Alcohol and Drug Abuse Patient Records regulations: The Federal rules restrict any use of the information to criminally investigate or prosecute any alcohol or drug abuse patient.[facility] the event this information is protected by the Federal Confidentiality of Alcohol and Drug Abuse Patient Records regulations: The Federal rules restrict any use of the information to criminally investigate or prosecute any alcohol or drug abuse patient.[facility] Reason for Visit (unrecogniz ed section and content) Reason Comments Refill Request Reason Onset Date Comments Refill Request 10/02/2022 Reason Comments Established Patient Reason Comments Fall Pt reported fall at home (LT) foot injury , Hx break pain rated 8. Reason Onset Date Comments Med Refill 07/04/2023 Care Teams (unrecognized sec tion and content) Endocrinology Specialist Relationship Specialty Start Date End Date Chantel Medina MD [address] [place], [place] [address] PCP - General Family Medicine 12/17/18 Nicholas Junior MD [address] [place] [address] [phone] Referring Neurology 12/03/20 Endocrinology Specialist Relationship Specialty Start Date End Date Chantel Medina MD [address] [place], [place] [id number] PCP - General Family Medicine 12/17/18 Nicholas Junior MD [address] [place] [address] [address] Referring Neurology 12/03/20 Endocrinology Specialist Relationship Specialty Start Date End Date Chantel Medina MD [address] [place], [place] [id number] PCP - General Family Medicine 12/17/18 Nicholas Junior MD [address] [id number] Referring Neurology 12/03/20 Endocrinology Specialist Relationship Specialty Start Date End Date Chantel Medina [address] [facility] [address] [place] [address] PCP - General 07/13/20 FOR RECORDS PERTAINING TO PATIENTS WHO ARE OR HAVE BEEN ENROLLED IN A CHEMICAL DEPENDENCY/SUBSTANCEABUSE PROGRAM, SOME INFORMATION MAY BE OMITTED. This clinical summary was aggregated from multiple sources. Caution should be exercised in using it in the provision of clinical care. This summary normalizes information from multiple sources, and as a consequence, information in this document may materially change the coding, format and clinical context of patient data. In addition, data may be omitted in some cases. CLINICAL DECISIONS SHOULD BE BASED ON THE PRIMARY CLINICAL RECORDS. [employer] provides no warranty or guarantee of the accuracy or completeness of information in this document.
[2023-08-21 18:29] LABS: Vitamin D,25 Hydroxy 42.3 ng/mL
[2023-08-21 18:30] LABS: Hemoglobin A1c 7.2 % (3.8-5.6)
[2023-08-21 18:36] LABS: ALB/GLOB Ratio 0.9 RATIO (0.9-2.4); AST(SGOT) 37 U/L (15-37); Alanine Aminotransfer ALT/SGPT 51 U/L (16-61); Albumin, Serum 3.6 g/dL (3.2-5.0); Alkaline Phosphatase 66 U/L (45-117); Anion Gap 4 (5-15); BUN 14 mg/dL (7-18); BUN/Creat Ratio 18.5 RATIO (10-20); Chloride 104 mmol/L (98-107); Creatinine, Serum 0.76 mg/dL (0.70-1.30); EST Glomerular Filtration Rate 113 mL/min (>60); Est Glom Filt Rate - Afr Amer 136 mL/min (>60); Globulin 3.8 g/dL (2.2-4.2); Glucose 126 mg/dL (74-106); Protein, Total 7.4 g/dL (6.4-8.2); Sodium Level 136 mmol/L (136-145)
[2023-08-21 18:47] LABS: Microalbumin,Random Urine < 5.0 mg/L (NO RANGE EST.)
== END | disposition home or self-care (01) ==
LOC: MTLAB 15:37
PROVIDERS: PCP Family Medicine; Referring Provider Internal Medicine Endocrinology, Diabetes & Metabolism; Visit Provider Internal Medicine Endocrinology, Diabetes & Metabolism
DX: E10.9 Type 1 diabetes mellitus without complications (principal); E55.9 Vitamin D deficiency, unspecified
CPT/HCPCS: 36415; 80053; 82043; 82306; 83036

== ENCOUNTER → 2023-11-27 | Outpatient (CLI) | payer OTHER, SELFPAY ==
--- NOTE | 2023-11-27 16:44 | RAD_ITS ---
STUDY: X-RAY - LEFT WRIST REASON FOR EXAM: Male, 57 years old. L distal closed radial fracture and avulsion L distal ulna TECHNIQUE: 3 view(s) of the wrist were obtained. COMPARISON: None. FINDINGS: Normal visualized distal radius and ulna. Normal radiocarpal articulation. Normal distal radioulnar articulation. Normal carpal bones. Normal carpal articulations. Normal carpometacarpal articulation of the thumb. Normal second through fifth carpometacarpal articulations. Normal visualized metacarpal bones. The soft tissue structures are unremarkable. RAD/Wrist min 3 Views IMPRESSION: Normal x-ray examination of the wrist. Electronically Signed: Billy Valero MD at 19:45 EDT ,
== END | disposition home or self-care (01) ==
LOC: MTRAD 16:44
PROVIDERS: PCP Family Medicine; Referring Provider Family Medicine; Visit Provider Family Medicine
DX: S61.109 Unspecified open wound of unspecified thumb with damage to nail (principal); X58.XXXA Exposure to other specified factors, initial encounter
CPT/HCPCS: 73110

== ENCOUNTER → 2023-12-26 | Outpatient (CLI) | payer OTHER, SELFPAY ==
[2023-12-26 15:28] LABS: Vitamin D,25 Hydroxy 66.6 ng/mL
[2023-12-26 15:31] LABS: Hemoglobin A1c 6.6 % (3.8-5.6)
[2023-12-26 16:05] LABS: ALB/GLOB Ratio 0.9 RATIO (0.9-2.4); AST(SGOT) 29 U/L (15-37); Alanine Aminotransfer ALT/SGPT 37 U/L (16-61); Albumin, Serum 3.4 g/dL (3.2-5.0); Alkaline Phosphatase 61 U/L (45-117); Anion Gap 5 (5-15); BUN 9 mg/dL (7-18); BUN/Creat Ratio 12.8 RATIO (10-20); Chloride 102 mmol/L (98-107); Cholesterol 113 mg/dL (200); EST Glomerular Filtration Rate 123 mL/min (>60); Est Glom Filt Rate - Afr Amer 149 mL/min (>60); Globulin 3.6 g/dL (2.2-4.2); Glucose 199 mg/dL (74-106); High Density Lipoprotein 51 mg/dL; Potassium 3.7 mmol/L (3.5-5.1); Sodium Level 134 mmol/L (136-145); Thyroid Stim Hormone (TSH) 1.54 uIU/mL (0.358-3.74); Triglycerides 104 mg/dL; Very Low Density Lipoprotein 21 mg/dL (5-40)
== END | disposition home or self-care (01) ==
PROVIDERS: PCP Family Medicine; Referring Provider Internal Medicine Endocrinology, Diabetes & Metabolism; Visit Provider Internal Medicine Endocrinology, Diabetes & Metabolism
DX: E10.9 Type 1 diabetes mellitus without complications (principal); E78.2 Mixed hyperlipidemia; E04.9 Nontoxic goiter, unspecified
CPT/HCPCS: 36415; 80053; 80061; 82306; 83036; 84443

== ENCOUNTER → 2024-01-10 | Outpatient (CLI) | payer OTHER, SELFPAY ==
[2024-01-10 13:48] LABS: ALB/GLOB Ratio 0.9 RATIO (0.9-2.4); AST(SGOT) 30 U/L (15-37); Alanine Aminotransfer ALT/SGPT 43 U/L (16-61); Albumin, Serum 3.4 g/dL (3.2-5.0); Alkaline Phosphatase 60 U/L (45-117); Anion Gap 8 (5-15); BUN 12 mg/dL (7-18); BUN/Creat Ratio 15.8 RATIO (10-20); Calcium,Total 9.1 mg/dL (8.5-10.1); Chloride 105 mmol/L (98-107); Creatinine, Serum 0.76 mg/dL (0.70-1.30); EST Glomerular Filtration Rate 112 mL/min (>60); Est Glom Filt Rate - Afr Amer 135 mL/min (>60); Globulin 3.8 g/dL (2.2-4.2); Glucose 208 mg/dL (74-106); Potassium 3.8 mmol/L (3.5-5.1); Protein, Total 7.2 g/dL (6.4-8.2); Sodium Level 136 mmol/L (136-145)
[2024-01-11 14:10] LABS: Absolute CD4 Helper 579 /uL (359-1519); Basophils (Absolute) 0 x10E3/uL (0.0-0.2); Eosinophils 2 % (Not Estab.); Eosinophils (Absolute) 0.1 x10E3/uL (0.0-0.4); Hematocrit 42.2 % (37.5-51.0); Hemoglobin 14.2 g/dL (13.0-17.7); Immature Granulocytes 0 % (Not Estab.); Immature Granulocytes Absolute 0 x10E3/uL (0.0-0.1); Lymphs 33 % (Not Estab.); Lymphs (Absolute) 1.6 x10E3/uL (0.7-3.1); MCH 32.4 pg (26.6-33.0); MCHC 33.6 g/dL (31.5-35.7); MCV 96 fL (79-97); Monocytes 8 % (Not Estab.); Monocytes (Absolute) 0.4 x10E3/uL (0.1-0.9); Neutrophils 56 % (Not Estab.); Neutrophils (Absolute) 2.7 x10E3/uL (1.4-7.0); Percent % CD4 Pos. Lymph. 36.2 % (30.8-58.5); Platelets 219 x10E3/uL (150-450); RBC Count 4.38 x10E6/uL (4.14-5.80); RDW 12.1 % (11.6-15.4); WBC Count 4.9 x10E3/uL (3.4-10.8)
== END | disposition home or self-care (01) ==
PROVIDERS: PCP Family Medicine; Referring Provider Internal Medicine; Visit Provider Internal Medicine
DX: B20 Human immunodeficiency virus [HIV] disease (principal)
CPT/HCPCS: 36415; 80053; 86361; 87536

== ENCOUNTER → 2024-01-31 | Outpatient (CLI) | payer OTHER, SELFPAY ==
[2024-02-04 15:08] LABS: HIV-1 RNA by PCR, Quant. < 20 copies/mL (.)
== END | disposition home or self-care (01) ==
LOC: MTLAB 15:15
PROVIDERS: PCP Family Medicine; Visit Provider Internal Medicine
DX: B20 Human immunodeficiency virus [HIV] disease (principal)
CPT/HCPCS: 87536

== ENCOUNTER → 2024-03-13 | Outpatient (CLI) | payer OTHER, SELFPAY ==
[2024-03-13 15:31] LABS: AST(SGOT) 29 U/L (15-37); Alanine Aminotransfer ALT/SGPT 34 U/L (16-61); Albumin, Serum 3.6 g/dL (3.2-5.0); Alkaline Phosphatase 56 U/L (45-117); Anion Gap 7 (5-15); BUN 10 mg/dL (7-18); Calcium,Total 8.9 mg/dL (8.5-10.1); Chloride 100 mmol/L (98-107); Creatinine, Serum 0.72 mg/dL (0.70-1.30); EST Glomerular Filtration Rate 120 mL/min (>60); Est Glom Filt Rate - Afr Amer 145 mL/min (>60); Globulin 3.7 g/dL (2.2-4.2); Glucose 176 mg/dL (74-106); Potassium 3.9 mmol/L (3.5-5.1); Protein, Total 7.3 g/dL (6.4-8.2); Sodium Level 132 mmol/L (136-145)
== END | disposition home or self-care (01) ==
LOC: MTLAB 12:54
PROVIDERS: PCP Family Medicine; Referring Provider Internal Medicine Endocrinology, Diabetes & Metabolism; Visit Provider Internal Medicine Endocrinology, Diabetes & Metabolism
DX: E10.65 Type 1 diabetes mellitus with hyperglycemia (principal)
CPT/HCPCS: 36415; 80053

== ENCOUNTER → 2024-06-03 | Outpatient (CLI) | payer OTHER, SELFPAY ==
[2024-06-03 12:38] LABS: Hemoglobin A1c 6.4 % (3.8-5.6)
[2024-06-03 13:00] LABS: ALB/GLOB Ratio 1.1 RATIO (0.9-2.4); AST(SGOT) 24 U/L (15-37); Alanine Aminotransfer ALT/SGPT 34 U/L (16-61); Albumin, Serum 3.5 g/dL (3.2-5.0); Alkaline Phosphatase 57 U/L (45-117); Anion Gap 6 (5-15); BUN 12 mg/dL (7-18); Calcium,Total 9.1 mg/dL (8.5-10.1); Chloride 102 mmol/L (98-107); Creatinine, Serum 0.66 mg/dL (0.70-1.30); EST Glomerular Filtration Rate 130 mL/min (>60); Est Glom Filt Rate - Afr Amer 158 mL/min (>60); Globulin 3.3 g/dL (2.2-4.2); Glucose 194 mg/dL (74-106); Potassium 4.2 mmol/L (3.5-5.1); Protein, Total 6.8 g/dL (6.4-8.2); Sodium Level 133 mmol/L (136-145)
== END | disposition home or self-care (01) ==
LOC: MTLAB 09:43
PROVIDERS: PCP Family Medicine; Referring Provider Internal Medicine Endocrinology, Diabetes & Metabolism; Visit Provider Internal Medicine Endocrinology, Diabetes & Metabolism
DX: E10.65 Type 1 diabetes mellitus with hyperglycemia (principal)
CPT/HCPCS: 36415; 80053; 83036

== ENCOUNTER → 2024-06-16 | Outpatient (CLI) | payer OTHER, SELFPAY ==
[2024-06-16 16:05] LABS: Anion Gap 6 (5-15); BUN 10 mg/dL (7-18); BUN/Creat Ratio 13.8 RATIO (10-20); Calcium,Total 8.8 mg/dL (8.5-10.1); Chloride 102 mmol/L (98-107); Creatinine, Serum 0.72 mg/dL (0.70-1.30); EST Glomerular Filtration Rate 118 mL/min (>60); Est Glom Filt Rate - Afr Amer 143 mL/min (>60); Glucose 160 mg/dL (74-106); Potassium 3.9 mmol/L (3.5-5.1); Sodium Level 134 mmol/L (136-145)
== END | disposition home or self-care (01) ==
LOC: MTLAB 13:39
PROVIDERS: PCP Family Medicine
DX: E10.65 Type 1 diabetes mellitus with hyperglycemia (principal)
CPT/HCPCS: 36415; 80048

== ENCOUNTER 2024-07-03 14:30 | Outpatient (RCR) | payer OTHER, SELFPAY ==
--- NOTE | 2024-05-21 14:55 | HP.PTEVAL_ITS ---
Patient's Visit Information Visit Information Visit Information: JOSSE GALLAGHER is a 58 year old M referred to Physical Therapy by Dr. Darrius Howard MD with a diagnosis of Inclusion Body Myositis. 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 Pt reports he has noticed gradual weakness over the past 4 years. Pt notes he is most effected in his bicep and calf regions. Pt notes he first noticed something wrong when he would repeated fall while ambulating for no reason. Pt notes he was referred to a neurologist at that time where he was diagnosed with IBM. Pt notes the first neurologist he saw told him there was nothing he could do as he would wind up in a wheelchair anyways one day. He went to get a second opinion where he found out there is a lot he can do as far as increasing strength and improving function. Pt notes he is not willing to lay down and just take this. Pt notes he has good sensation in his feet. Pt reports several falls in the past, with the last one being 6 weeks ago. Pt reports he will use a cane when he goes on an extended walk. Pt notes he has no stairs at home. Pt reports he is unable to run, squat, or get off the floor at this time. Pt notes his goal is to be able to walk longer, and get out of a chair easier. Pt is not in pain at this time. Objective Objective: Neuro: B LE sensation is WNL to light touch. ROM: B LE's are WNL when compared bilaterally MMT: B knee ext 3/5. All other B LE MMT 4/5 throughout Sit to stands: Unable to perform without UE assist 6 min walk test: Pt is able to ambulate 1000 feet with CGA in 6 min Balance/Special Test Scores Lower Extremity Functional Score: 39 Goals Goal 1:: Increase B LE strength x 1 grade to aid with transfers Goal Time Frame: 4-6 Weeks Goal 2:: Pt will be able to perform 1 sit to stand transfer without UE's to aid with I at home Goal Time Frame: 4-6 Weeks Goal 3:: Pt will be able to ambulate greater than 1500 feet in 6 min to aid with community ambulation Goal Time Frame: 4-6 Weeks Goal 4:: I with HEP Goal Time Frame: 4-6 Weeks Rehabilitation Potential Physical Therapy Diagnosis: Pt has B LE weakness, difficulty with transfers, and a Hx of falls secondary to IBM Rehabilitation Potential: Good Anticipated Interventions Patient/Client Instruction: Educate patient on: Condition and Plan of Care For the Purpose of:: To improve self management Therapeutic Exercise to Include: Strength training, Endurance training, Balance training, Gait and locomotor training and Dynamic Lumbar Stabilization For the Purpose of:: To improve muscle performance and motor function, To improve ability to perform ADL's and To increase tolerance to activity/condition/position Text: Thank you for the opportunity to evaluate your patient. For Medicare and Medicare HMO plans, please review the plan of care and approve it. It will need to be FAXED BACK to us at [phone] for Medicare purposes. For Medicare only, by signing this I certify the plan of care. Please let me know if there are questions or concerns regarding this plan of care. Physician Signature: Date:
--- NOTE | 2024-06-20 14:08 | HP.PTREVAL ---
Re-Evaluation Intro: Dr. Darrius Howard MD, It has been my pleasure to treat JOSSE GALLAGHER over the last 7 visits for Inclusion Body Myositis. Please see the progress note below for an update on the physical therapy plan of care! Subjective Subjective: I have made a lot of improvements with my strength and endurance. I can now get out of a car a little quicker Objective Objective/Function: MMT: B hip flex, abd, and add 4+/5 throughout. B knee flex 4-/5, B knee ext 3-/5 6 min walk test: 1190 feet sit to stand: Unable to perform 1 rep without UE's. 30 sec sit to stand with UE's- 6 sit to stands Pt has shown good improvements with hip strength and endurance at this time. Still lacks functional strength for transfers and ambulation Plan Plan Plan: 06/20/24- Cont with B UE and LE strengthening, gait training, balance and proprio, core stab ex's, transfer training, and HEP Balance/Gait/Functional tests Balance/Special Test Scores Lower Extremity Functional Score: 39 Goals Goals Goal 1:: Increase B LE strength x 1 grade to aid with transfers Goal Time Frame: 4-6 Weeks Goal Progress: Progressing Goal 2:: Pt will be able to perform 1 sit to stand transfer without UE's to aid with I at home Goal Time Frame: 4-6 Weeks Goal Progress: Not Progressing Goal 3:: Pt will be able to ambulate greater than 1500 feet in 6 min to aid with community ambulation Goal Time Frame: 4-6 Weeks Goal Progress: Progressing Goal 4:: I with HEP Goal Time Frame: 4-6 Weeks Goal Progress: Progressing Anticipated Interventions Anticipated Interventions Patient/Client Instruction: Educate patient on: Condition and Plan of Care For the Purpose of:: To improve self management Therapeutic Exercise to Include: Strength training, Endurance training, Balance training, Gait and locomotor training and Dynamic Lumbar Stabilization For the Purpose of:: To improve muscle performance and motor function, To improve ability to perform ADL's and To increase tolerance to activity/condition/position Re-Evaluation Ending Re-evaluation ending: Please do not hesitate to contact me at [phone] by phone or if you have questions or concerns regarding this new plan of care! Sincerely, Dereck Holguin, PT, ATC
--- NOTE | 2024-09-22 12:20 | HP.PT.NRP ---
Patient Information Patient Information: JOSSE GALLAGHER was seen in my office for initial evaluation on 05/21/24. The following Plan of Care was established for this patient: POC Established Initial Frequency: 2-3x /Week Initial Duration: 4-6 Weeks Anticipated Interventions Patient/Client Instruction: Educate patient on: Condition and Plan of Care For the Purpose of:: To improve self management Therapeutic Exercise to Include: Strength training, Endurance training, Balance training, Gait and locomotor training and Dynamic Lumbar Stabilization For the Purpose of:: To improve muscle performance and motor function, To improve ability to perform ADL's and To increase tolerance to activity/condition/position Last Seen Last Seen: This patient was last seen in our office . Pertinent comments regarding their Physical therapy will appear below: Pt has not returned for physical therapy for greater than 30 days and is discontinued at this time. At this point I will be discontinuing this patient from physical therapy. I would be happy to see this patient again in the future if found appropriate by the physician. Thank you! Dereck Holguin, PT, ATC Balance/Gait/Functional tests Balance/Special Test Scores Lower Extremity Functional Score: 39
== END 2024-07-03 19:00 | disposition home or self-care (01) ==
LOC: PT 14:30
PROVIDERS: PCP Family Medicine; Referring Provider Physical Medicine & Rehabilitation; Visit Provider Physical Medicine & Rehabilitation
DX: G72.41 Inclusion body myositis [IBM] (principal)
CPT/HCPCS: 97110; 97161; 97530

== ENCOUNTER → 2024-08-11 | Outpatient (CLI) | payer OTHER, SELFPAY ==
[2024-08-11 18:04] LABS: AST(SGOT) 28 U/L (15-37); Alanine Aminotransfer ALT/SGPT 35 U/L (16-61); Albumin, Serum 3.6 g/dL (3.2-5.0); Alkaline Phosphatase 65 U/L (45-117); Anion Gap 5 (5-15); BUN 14 mg/dL (7-18); BUN/Creat Ratio 17.3 RATIO (10-20); Calcium,Total 9.4 mg/dL (8.5-10.1); Chloride 104 mmol/L (98-107); Creatinine, Serum 0.81 mg/dL (0.70-1.30); EST Glomerular Filtration Rate 104 mL/min (>60); Est Glom Filt Rate - Afr Amer 126 mL/min (>60); Globulin 3.6 g/dL (2.2-4.2); Glucose 109 mg/dL (74-106); Potassium 4.1 mmol/L (3.5-5.1); Protein, Total 7.2 g/dL (6.4-8.2); Sodium Level 138 mmol/L (136-145)
[2024-08-14 06:06] LABS: HIV-1 RNA by PCR, Quant. < 20 copies/mL (.)
[2024-08-14 13:07] LABS: Absolute CD4 Helper 953 /uL (359-1519); Basophils (Absolute) 0 x10E3/uL (0.0-0.2); Eosinophils 3 % (Not Estab.); Eosinophils (Absolute) 0.1 x10E3/uL (0.0-0.4); Hematocrit 43.3 % (37.5-51.0); Hemoglobin 14.4 g/dL (13.0-17.7); Immature Granulocytes 0 % (Not Estab.); Immature Granulocytes Absolute 0 x10E3/uL (0.0-0.1); Lymphs 37 % (Not Estab.); Lymphs (Absolute) 2.1 x10E3/uL (0.7-3.1); MCH 32.8 pg (26.6-33.0); MCHC 33.3 g/dL (31.5-35.7); MCV 99 fL (79-97); Monocytes 7 % (Not Estab.); Monocytes (Absolute) 0.4 x10E3/uL (0.1-0.9); Neutrophils 53 % (Not Estab.); Percent % CD4 Pos. Lymph. 45.4 % (30.8-58.5); Platelets 236 x10E3/uL (150-450); RBC Count 4.39 x10E6/uL (4.14-5.80); RDW 11.7 % (11.6-15.4); WBC Count 5.6 x10E3/uL (3.4-10.8)
== END | disposition home or self-care (01) ==
LOC: MTLAB 13:53
PROVIDERS: PCP Family Medicine; Referring Provider Internal Medicine; Visit Provider Internal Medicine
DX: B20 Human immunodeficiency virus [HIV] disease (principal)
CPT/HCPCS: 36415; 80053; 86361; 87536

== ENCOUNTER → 2024-09-10 | Outpatient (CLI) | payer OTHER, SELFPAY ==
[2024-09-10 12:51] LABS: AST(SGOT) 25 U/L (15-37); Alanine Aminotransfer ALT/SGPT 29 U/L (16-61); Albumin, Serum 3.4 g/dL (3.2-5.0); Alkaline Phosphatase 60 U/L (45-117); Anion Gap 7 (5-15); BUN 9 mg/dL (7-18); BUN/Creat Ratio 13.6 RATIO (10-20); Calcium,Total 8.9 mg/dL (8.5-10.1); Chloride 104 mmol/L (98-107); Cholesterol 112 mg/dL (200); Creatinine, Serum 0.66 mg/dL (0.70-1.30); EST Glomerular Filtration Rate 131 mL/min (>60); Est Glom Filt Rate - Afr Amer 158 mL/min (>60); Globulin 3.5 g/dL (2.2-4.2); Glucose 188 mg/dL (74-106); High Density Lipoprotein 54 mg/dL; Potassium 4.7 mmol/L (3.5-5.1); Protein, Total 6.9 g/dL (6.4-8.2); Sodium Level 136 mmol/L (136-145); Triglycerides 60 mg/dL; Very Low Density Lipoprotein 12 mg/dL (5-40)
[2024-09-10 13:43] LABS: Microalbumin,Random Urine < 5.0 mg/L (NO RANGE EST.)
[2024-09-10 13:46] LABS: Hemoglobin A1c 6.7 % (3.8-5.6)
== END | disposition home or self-care (01) ==
LOC: MTLAB 09:11
PROVIDERS: PCP Family Medicine; Referring Provider Internal Medicine Endocrinology, Diabetes & Metabolism; Visit Provider Internal Medicine Endocrinology, Diabetes & Metabolism
DX: E10.65 Type 1 diabetes mellitus with hyperglycemia (principal); E78.2 Mixed hyperlipidemia; E55.9 Vitamin D deficiency, unspecified
CPT/HCPCS: 36415; 80053; 80061; 82043; 82306; 82570; 83036

== ENCOUNTER → 2024-12-30 | Outpatient (CLI) | payer OTHER, SELFPAY ==
[2024-12-30 16:02] LABS: ALB/GLOB Ratio 1.5 RATIO (0.9-2.4); AST(SGOT) 28 U/L (<=37); Alanine Aminotransfer ALT/SGPT 28 U/L (<=46); Albumin, Serum 4.3 g/dL (3.5-5.0); Alkaline Phosphatase 57 U/L (40-129); Anion Gap 10 (5-15); BUN 13 mg/dL (4-19); BUN/Creat Ratio 17.9 RATIO (10-20); Calcium,Total 9.7 mg/dL (7.6-11.0); Carbon Dioxide 24.5 mmol/L (21.0-32.0); Chloride 102 mmol/L (98-108); Creatinine, Serum 0.71 mg/dL (0.70-1.20); EST Glomerular Filtration Rate 106 (>60); Globulin 2.9 g/dL (2.2-4.2); Glucose 65 mg/dL (70-99); Protein, Total 7.2 g/dL (5.9-8.4); Sodium Level 137 mmol/L (133-145); Total Bilirubin 0.41 mg/dL (0.00-1.30)
[2024-12-30 16:05] LABS: Hemoglobin A1c 7.6 % (<=5.6)
== END | disposition home or self-care (01) ==
LOC: MTLAB 12:56
PROVIDERS: PCP Family Medicine; Referring Provider Internal Medicine Endocrinology, Diabetes & Metabolism; Visit Provider Internal Medicine Endocrinology, Diabetes & Metabolism
DX: E10.65 Type 1 diabetes mellitus with hyperglycemia (principal)
CPT/HCPCS: 36415; 80053; 83036

== ENCOUNTER → 2025-02-05 | Outpatient (CLI) | payer OTHER, SELFPAY ==
[2025-02-05 15:26] LABS: Absolute Lymphocyte Count 1.44 X10^3/uL (0.83-4.51); Absolute Neutrophil Count 2.8 X10^3/uL (2.0-7.7); Basophil# 0.03 X10^3/uL; Basophil% 0.6 % (0-1); Eosinophil# 0.11 X10^3/uL; Eosinophils% 2.3 % (0-5); Hematocrit 40.9 % (40-54); Hemoglobin 13.9 g/dL (13.0-16.5); Lymphocyte # 1.44 X10^3/ul (0.83-4.51); Lymphocyte % 30.6 % (19-41); Mean Corpuscular Hgb 32.6 pg (27.0-32.0); Mean Corpuscular Volume 95.8 fL (80-94); Mean Platelet Vol. 9.6 fl (6.2-12.0); Monocyte# 0.34 X10^3/uL; Monocyte% 7.2 % (0-10); NRBC Flagged by Analyzer 0 % (0-5); Neutrophil # 2.77 X10^3/uL (2.7-7.7); Neutrophil % 59.1 % (47-70); Platelet Count 245 K/mm3 (150-450); RBC Distribution Width SD 42.1 fl (35.1-43.9); Red Blood Count 4.27 M/mm3 (4.6-6.2); White Blood Count 4.7 K/mm3 (4.4-11.0)
[2025-02-05 15:50] LABS: Microalbumin,Random Urine < 12.0 mg/L (NO RANGE EST.); Microalbumin:Creatinine Ratio UNABLE TO CALCULATE mg/g CRE
[2025-02-05 15:57] LABS: ALB/GLOB Ratio 1.5 RATIO (0.9-2.4); AST(SGOT) 28 U/L (<=37); Alanine Aminotransfer ALT/SGPT 28 U/L (<=46); Albumin, Serum 3.9 g/dL (3.5-5.0); Alkaline Phosphatase 52 U/L (40-129); Anion Gap 11 (5-15); BUN 9 mg/dL (4-19); CPK Total, Creatine Kinase 173 U/L (24-195); Calcium,Total 9.1 mg/dL (7.6-11.0); Carbon Dioxide 23.2 mmol/L (21.0-32.0); Chloride 102 mmol/L (98-108); EST Glomerular Filtration Rate 106 (>60); Globulin 2.6 g/dL (2.2-4.2); Glucose 228 mg/dL (70-99); Potassium 4.5 mmol/L (3.3-5.1); Protein, Total 6.5 g/dL (5.9-8.4); Sodium Level 136 mmol/L (133-145); Total Bilirubin 0.43 mg/dL (0.00-1.30)
[2025-02-07 16:08] LABS: Absolute CD4 Helper 655 /uL (359-1519); Basophils (Absolute) 0 x10E3/uL (0.0-0.2); Eosinophils 2 % (Not Estab.); Eosinophils (Absolute) 0.1 x10E3/uL (0.0-0.4); Immature Granulocytes 0 % (Not Estab.); Immature Granulocytes Absolute 0 x10E3/uL (0.0-0.1); Lymphs 31 % (Not Estab.); Lymphs (Absolute) 1.4 x10E3/uL (0.7-3.1); MCH 32.5 pg (26.6-33.0); MCHC 31.8 g/dL (31.5-35.7); MCV 102 fL (79-97); Monocytes 7 % (Not Estab.); Monocytes (Absolute) 0.3 x10E3/uL (0.1-0.9); Neutrophils 59 % (Not Estab.); Neutrophils (Absolute) 2.7 x10E3/uL (1.4-7.0); Percent % CD4 Pos. Lymph. 46.8 % (30.8-58.5); Platelets 238 x10E3/uL (150-450); RBC Count 4.31 x10E6/uL (4.14-5.80); RDW 11.8 % (11.6-15.4); WBC Count 4.6 x10E3/uL (3.4-10.8)
[2025-02-09 15:08] LABS: HIV-1 RNA by PCR, Quant. < 20 copies/mL (.)
== END | disposition home or self-care (01) ==
LOC: MTLAB 11:41
PROVIDERS: PCP Family Medicine; Referring Provider Internal Medicine; Visit Provider Internal Medicine
DX: B20 Human immunodeficiency virus [HIV] disease (principal)
CPT/HCPCS: 36415; 80053; 82043; 82550; 82570; 85025; 86361; 87536

== ENCOUNTER → 2025-03-12 | Outpatient (CLI) | payer OTHER, SELFPAY | END | disposition home or self-care (01) | LOC: MTRAD 14:24 | PROVIDERS: PCP Family Medicine; Referring Provider Family Medicine; Visit Provider Physician Assistant Surgical | DX: S92.354A Nondisplaced fracture of fifth metatarsal bone, right foot, initial encounter for closed fracture (principal); X58.XXXA Exposure to other specified factors, initial encounter | CPT/HCPCS: 73610; 73630 ==

== ENCOUNTER → 2025-04-01 | Outpatient (CLI) | payer OTHER, SELFPAY ==
[2025-04-01 15:54] LABS: AST(SGOT) 25 U/L (<=37); Alanine Aminotransfer ALT/SGPT 30 U/L (<=46); Albumin, Serum 4.4 g/dL (3.5-5.0); Alkaline Phosphatase 61 U/L (40-129); Anion Gap 11 (5-15); BUN 12 mg/dL (4-19); BUN/Creat Ratio 18.5 RATIO (10-20); Calcium,Total 9.6 mg/dL (7.6-11.0); Carbon Dioxide 24.7 mmol/L (21.0-32.0); Chloride 102 mmol/L (98-108); Globulin 2.8 g/dL (2.2-4.2); Glucose 144 mg/dL (70-99); Potassium 4.2 mmol/L (3.3-5.1)
== END | disposition home or self-care (01) ==
LOC: MTLAB 13:01
PROVIDERS: PCP Family Medicine
DX: E10.65 Type 1 diabetes mellitus with hyperglycemia (principal)
CPT/HCPCS: 36415; 80053; 83036

== ENCOUNTER → 2025-07-02 | Outpatient (CLI) | payer MEDICARE, SELFPAY ==
[2025-07-02 18:24] LABS: AST(SGOT) 29 U/L (<=37); Alanine Aminotransfer ALT/SGPT 35 U/L (<=46); Albumin, Serum 4.4 g/dL (3.5-5.0); Alkaline Phosphatase 58 U/L (40-129); Anion Gap 10 (5-15); BUN 12 mg/dL (4-19); BUN/Creat Ratio 16.9 RATIO (10-20); Calcium,Total 9.7 mg/dL (7.6-11.0); Carbon Dioxide 24.4 mmol/L (21.0-32.0); Chloride 100 mmol/L (98-108); Globulin 2.9 g/dL (2.2-4.2); Glucose 147 mg/dL (70-99); Potassium 4.2 mmol/L (3.3-5.1)
== END | disposition home or self-care (01) ==
PROVIDERS: PCP Family Medicine; Referring Provider Internal Medicine Endocrinology, Diabetes & Metabolism; Visit Provider Internal Medicine Endocrinology, Diabetes & Metabolism
DX: E10.65 Type 1 diabetes mellitus with hyperglycemia (principal)
CPT/HCPCS: 36415; 80053; 83036; 84443

== ENCOUNTER → 2025-08-10 | Outpatient (CLI) | payer MEDICARE, SELFPAY ==
[2025-08-10 18:07] LABS: AST(SGOT) 29 U/L (<=37); Alanine Aminotransfer ALT/SGPT 40 U/L (<=46); Albumin, Serum 4.2 g/dL (3.5-5.0); Alkaline Phosphatase 54 U/L (40-129); Anion Gap 9 (7-18); BUN 11 mg/dL (4-19); BUN/Creat Ratio 15.3 RATIO (10-20); Calcium,Total 9.3 mg/dL (7.6-11.0); Carbon Dioxide 23.1 mmol/L (20.0-29.0); Chloride 101 mmol/L (96-106); Globulin 2.7 g/dL (2.2-4.2); Glucose 158 mg/dL (70-99); Magnesium 2.0 mg/dL (1.5-2.2); Potassium 4.3 mmol/L (3.5-5.1)
== END | disposition home or self-care (01) ==
PROVIDERS: PCP Family Medicine; Visit Provider Family Medicine
DX: I10 Essential (primary) hypertension (principal)
CPT/HCPCS: 36415; 80053; 83735